=== PATIENT | male | born 1965 | race Caucasian/White ===

== ENCOUNTER 2017-04-28 20:20 | Emergency (ER) | payer BC ==
[2017-04-28] MEDS ORDERED: ONDANSETRON HCL/PF 2 MG/ML VIAL IV ONE (20:55)
[2017-04-28] MEDS ORDERED: NORMAL SALINE 1,000 ML IV ONE (20:55)
[2017-04-28] MEDS ORDERED: ONDANSETRON HCL/PF 2 MG/ML VIAL ONE (21:03)
--- NOTE | 2017-04-28 21:06 | ERNOTE ---
Medical Problem HPI - General Chief Complaint: Nausea/Vomiting Time Seen by Provider: 04/28/17 20:46 Source: patient Exam Limitations: no limitations - Immun/Allergies/Home Medications Immunizations: IMMUNIZATION HX Immunizations Up to Date Yes History of Influenza Vaccine Yes Hx Pneumococcal Vaccination Yes Allergies/Adverse Reactions: Allergies No Known Allergies Allergy (Verified 07/14/16 05:32) Home Medications: HOME MEDICATIONS Acetaminophen [Tylenol] 650 mg PO Q6H PRN #0 tablet 07/14/16 [Last Taken Unknown ] Albuterol Sulfate/Ipratropium [Duoneb 2.5-0.5MG/3ML Soln] 3 ml IH Q4H PRN #0 nebu 07/14/16 [Last Taken Unknown] Heparin Sodium,Porcine [Heparin Sodium] 5,000 units SC Q8H vial 07/14/16 [Last Taken Unknown] Levofloxacin/D5w [Levaquin] 750 mg IV Q24H bag 07/14/16 [Last Taken Unknown] Morphine Sulfate 2 mg IV Q1H PRN #0 disp.syrin 07/14/16 [Last Taken Unknown] Morphine Sulfate 4 mg IV Q2H PRN #0 disp.syrin 07/14/16 [Last Taken Unknown] - History of Present History Narrative: pt awoke this AM with pressure feeling in his head and nausea and vomiting. He has been unable to keep anything down today. Pt finished chemo for lung cancer in February and has not yet had a follow up scan. Timing: constant, getting worse Severity: moderate, severe Review of Systems - Narrative Narrative: difficult to obtain information from the patient as he is very impatient and does not answer questions fully - Review of Systems Constitutional: Absent: recent illness EYE: Present: no symptoms reported ENT: Present: no symptoms reported Respiratory: Present: shortness of breath - no more than usual Cardiology: Present: no symptoms reported Gastrointestinal/Abdominal: Present: nausea, vomiting Genitourinary: Present: no symptoms reported Musculoskeletal: Present: no symptoms reported Skin: Present: no symptoms reported Neurological: Present: no symptoms reported Endocrine: Present: no symptoms reported Hematologic/Lymphatic: Present: no symptoms reported Psych: Present: no symptoms reported - Patient's Past Medical History Patient History - Medical: Kidney stone Patient History - Cardiac/Respiratory: No pertinent hx Patient History - Cancer: Lung, Chemotherapy history Patient History - Surgical Procedures: Cancer Surgery, T & A Patient History - Other: None - Family History Mother Family History - Medical: No pertinent hx Father Family History - Medical: - Social History Living Situations: home Abuse History: No History of abuse Psych History: No pertinent hx Smoking Status: Former smoker Patient requests Smoking Cessation Consult: No Initiate information on Smoking Cessation: No Alcohol Use: none Drug Use: none - Immunizations Immunizations Up to Date: Yes Hx Pneumococcal Vaccination: Yes History of Influenza Vaccine: Yes Physical Exam - Physical Exam General Appearance: Present: wd/wn, alert, mild distress, irritable Head Exam: Present: normal inspection, no evidence of injury Respiratory: Present: no respiratory distress, normal breath sounds - on the right, no accessory muscle use, decreased breath sounds - absent on the left Cardiovascular/Chest: Present: regular rate, rhythm Gastrointestinal/Abdominal: Present: normal bowel sounds, nondistended, soft, tenderness - diffuse. Absent: guarding, rebound Back Exam: Present: normal inspection, normal range of motion Extremity Exam: Present: normal inspection, normal range of motion Neurological Exam: Present: alert, oriented Skin Exam: Present: normal color, warm/dry ED Progress - Vital Signs Vital Signs: Vital Signs 04/28/17 04/28/17 20:22 20:46 Temperature 36.5 C 36.8 C Pulse Rate 77 99 Respiratory 16 Rate Blood Pressure 155/98 166/100 O2 Sat by Pulse 99 99 Oximetry - Progress/Reassessment Chief Complaint: Nausea/Vomiting Departure - Departure Clinical Impression: Vomiting Qualifiers: Vomiting type: unspecified Vomiting Intractability: non-intractable Nausea presence: with nausea Qualified Code(s): R11.2 - Nausea with vomiting, unspecified Disposition: Home Follow Up Needed Condition: Good Instructions: Nausea, Adult Additional Instructions: take the ondansetron that you have at home per directions. take it scheduled for the next 24 hours then as needed
--- OUTSIDE RECORDS SUMMARY | 2017-04-28 21:06 | XMS REPORT | Summary of Care ---
:1965 Author Organization [facility] Care Team Providers Name Role Phone Angel Hernandes Primary Care Physician Encounter Date(s): 01/08/17 - 01/08/[address] 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 Start Date: 01/01/17 Status: Ordereddexamethasone 4 mg oral tablet 1 tab(s), Oral, BID, Take for 3 days, start day before chemotherapy, # 6 tab(s) , 0 Refill(s), Start Date: 01/01/17 9:10:00 CDT, other reason (Rx) Special Instructions: Take for 3 days, start day before chemotherapy Start Date: 01/01/17 Status: OrderedFlomax 0.4 mg oral capsule 1 cap(s), Oral, HS, # 30 cap(s), 11 Refill(s), Start Date: 09/14/15 10:57:00 VOCATIONAL EVALUATOR , Pharmacy: [place], [place] Start Date: 09/14/15 Stop Date: 11/27/16 Status: Discontinuedfolic acid 1 mg oral tablet 1 tab(s), Oral, Daily, # 30 tab(s), 5 Refill(s), Start Date: 12/25/16 12:57:00 CDT, Pharmacy: [place], [place] Start Date: 12/25/16 Status: Orderedfolic acid 1 mg oral tablet 1 tab(s), Oral, Daily, # 30 tab(s), 0 Refill(s), Start Date: 01/01/17 9:10:00 CDT, other reason (Rx) Start Date: 01/01/17 Status: Orderedlisinopril 10 mg oral tablet 1 tab(s), Oral, Daily, 0 Refill(s), Start Date: 08/31/15 11:05:00 VOCATIONAL EVALUATOR Start Date: 08/31/15 Status: OrderedNorco 5 mg-325 mg oral tablet 1 tab(s), Oral, q6hr, # 12 tab(s), 0 Refill(s), Start Date: 12/01/16 12:58:00 VOCATIONAL EVALUATOR, Pharmacy: [place], [place] Start Date: 12/01/16 Status: Orderedondansetron 8 mg oral tablet 1 tab(s), Oral, q8hr, PRN nausea/vomiting, # 40 tab(s), 3 Refill(s), Start Date : 12/03/16 13:43:00 VOCATIONAL EVALUATOR, Pharmacy: [place] Start Date: 12/03/16 Status: Orderedprochlorperazine 10 mg oral tablet 1 tab(s), Oral, q6hr, PRN nausea/vomiting, # 40 tab(s), 3 Refill(s), Start Date : 12/03/16 13:42:00 VOCATIONAL EVALUATOR, Pharmacy: [place] Start Date: 12/03/16 Status: OrderedXanax 0.25 mg oral tablet 1 tab(s), Oral, TID, prn anxiety, 0 Refill(s), Start Date: 11/28/16 9:04:00 VOCATIONAL EVALUATOR Special Instructions: prn anxiety Start Date: 11/28/16 Status: OrderedXarelto 15 mg oral tablet 1 tab(s), Oral, BID, # 42 tab(s), 0 Refill(s), Start Date: 12/25/16 13:02:00 CDT , called to pharmacy (Rx) Start Date: 12/25/16 Stop Date: 01/15/17 Status: OrderedXarelto 20 mg oral tablet 1 tab(s), Oral, qPM, # 30 tab(s), 3 Refill(s), Start Date: 01/15/17 13:04:00 CDT , called to pharmacy (Rx) Start Date: 01/15/17 Status: Ordered Results Patient Viewable Results Most recent to oldest [Reference Range]: 1 WBC [4.8-10.8 thou/mm3] 7.4 thou/mm3 (01/08/17 8:10 AM) RBC [4.60-6.00 Mil/mm3] 4.98 Mil/mm3 (01/08/17 8:10 AM) Hgb [14.0-18.0 g/dL] 13.3 g/dL *LOW* (01/08/17 8:10 AM) Hct [42.0-52.0 %] 39.4 % *LOW* (01/08/17 8:10 AM) MCV [80.0-94.0 fL] 79.1 fL *LOW* (01/08/17 8:10 AM) MCH [25.0-38.0 pg/cell] 26.7 pg/cell (01/08/17 8:10 AM) MCHC [31.0-37.0 g/dL] 33.8 g/dL (01/08/17 8:10 AM) RDW [1.0-48.0 fL] 37.5 fL (01/08/17 8:10 AM) Platelet [130-400 thou/mm3] 140 thou/mm3 (01/08/17 8:10 AM) Neutrophils % Auto [50.0-75.0 %] 68.7 % (01/08/17 8:10 AM) Immature Granulocyte Auto [0.1-2.0 %] 0.4 % (01/08/17 8:10 AM) Lymphocytes % Auto [15.0-41.0 %] 24.8 % (01/08/17 8:10 AM) Monocytes % Auto [2.0-10.0 %] 5.1 % (01/08/17 8:10 AM) Eosinophils % Auto [0.0-6.0 %] 0.9 % (01/08/17 8:10 AM) Basophil % Auto [0.0-1.0 %] 0.1 % (01/08/17 8:10 AM) Neutrophils Absolute [1.5-5.9 thou/mm3] 5.1 thou/mm3 (01/08/17 8:10 AM) Immature Gran Absolute [0.01-0.03 thou/mm3] 0.03 thou/mm3 (01/08/17 8:10 AM) Lymphocytes Absolute [1.5-4.0 thou/mm3] 1.8 thou/mm3 (01/08/17 8:10 AM) Monocytes Absolute [0.0-0.9 thou/mm3] 0.4 thou/mm3 (01/08/17 8:10 AM) Eosinophil Absolute [0.0-0.7 thou/mm3] 0.1 thou/mm3 (01/08/17 8:10 AM) Basophil Absolute [0.0-0.2 thou/mm3] 0.0 thou/mm3 (01/08/17 8:10 AM) Immunizations No data available for this section Procedures Procedure Date Related Diagnosis Body Site Insertion Implanted Port1 12/01/16 Lobectomy of lung2 Tonsillectomy and adenoidectomy 1auto-populated from documented surgical [id number] Social History No data available for this section Assessment and Plan No data available for this section
--- OUTSIDE RECORDS SUMMARY | 2017-04-28 21:06 | XMS REPORT | Summary of Care ---
:1965 Author Organization [facility] Address [address] [place] [address] Care Team Providers Name Role Phone Angel Hernandes Primary Care Physician Encounter Date(s): 01/01/17 - 01/01/17 [facility], [address] [place], [place] [address] Discharge Diagnosis: Adenocarcinoma of upper lobe of left lung Discharge Disposition: 01 Discharged to Home or Self Care Attending Physician: America Blanchard MD Referring Physician: America Blanchard MD Vital Signs Most recent to oldest [Reference Range]: 1 Temperature Temporal Artery [36.0-38.0 DegC] 36.4 DegC (01/01/17 8:35 AM) Peripheral Pulse Rate [60-100 bpm] 98 bpm (01/01/17 8:35 AM) Respiratory Rate [12-20 br/min] 20 br/min (01/01/17 8:35 AM) SpO2 [90-100 %] 98 % (01/01/17 8:35 AM) Blood Pressure [90-130/60-90 mmHg] 142/73mmHg *HI* (01/01/17 8:35 AM) Mean Arterial Pressure, Cuff 96 mmHg (01/01/17 8:35 AM) Most recent to oldest [Reference Range]: 1 Height/Length Measured 178 cm (01/01/17 8:35 AM) Height/Length Estimated 178 cm (01/01/17 8:35 AM) Weight Estimated 77 kg (01/01/17 8:35 AM) Weight Dosing 77 kg (01/01/17 8:35 AM) Weight Measured 77 kg (01/01/17 8:35 AM) BSA Measured 1.95 m2 (01/01/17 8:35 AM) BSA Estimated 1.95 m2 (01/01/17 8:35 AM) Body Mass Index Measured 24.3 kg/m2 (01/01/17 8:35 AM) Body Mass Index Estimated 24.3 kg/m2 (01/01/17 8:35 AM) Problem List Condition Effective Dates Status Health [...] Refill(s), Start Date: 01/01/17 9:08:00 CDT, Pharmacy: [place], [place] Special Instructions: Please take day before [...] cap(s), 11 Refill(s), Start Date: 09/14/15 10:57:00 RESTAURANT TEAM MEMBER , Pharmacy: [place] Start Date: 09/14/15 Stop Date: 11/27/16 Status: Discontinuedfolic acid 1 mg oral tablet 1 tab(s), Oral, Daily, # 30 tab(s), 5 Refill(s), Start Date: 12/25/16 12:57:00 CDT, Pharmacy: [place] Start Date: 12/25/16 Status: Orderedfolic acid 1 mg oral tablet 1 tab(s), Oral, Daily, # 30 tab(s), 0 Refill(s), Start Date: 01/01/17 9:10:00 CDT, other reason (Rx) Start Date: 01/01/17 Status: Orderedlisinopril 10 mg oral tablet 1 tab(s), Oral, Daily, 0 Refill(s), Start Date: 08/31/15 11:05:00 RESTAURANT TEAM MEMBER Start Date: 08/31/15 Status: OrderedNorco 5 mg-325 mg oral tablet 1 tab(s), Oral, q6hr, # 12 tab(s), 0 Refill(s), Start Date: 12/01/16 12:58:00 RESTAURANT TEAM MEMBER, Pharmacy: [place], [place] Start Date: 12/01/16 Status: Orderedondansetron 8 mg oral tablet 1 tab(s), Oral, q8hr, PRN nausea/vomiting, # 40 tab(s), 3 Refill(s), Start Date : 12/03/16 13:43:00 RESTAURANT TEAM MEMBER, Pharmacy: [place], [place] Start Date: 12/03/16 Status: Orderedprochlorperazine 10 mg oral tablet 1 tab(s), Oral, q6hr, PRN nausea/vomiting, # 40 tab(s), 3 Refill(s), Start Date : 12/03/16 13:42:00 RESTAURANT TEAM MEMBER, Pharmacy: [place], [place] Start Date: 12/03/16 Status: OrderedXanax 0.25 mg oral tablet 1 tab(s), Oral, TID, prn anxiety, 0 Refill(s), Start Date: 11/28/16 9:04:00 RESTAURANT TEAM MEMBER Special Instructions: prn anxiety Start Date: 11/28/16 [...] Most recent to oldest [Reference Range]: 1 Estimated Creatinine Clearance 133.50 mL/min (01/01/17 8:36 AM) Immunizations No data available for this section Procedures Procedure Date Related Diagnosis Body Site Insertion Implanted Port1 12/01/16 Lobectomy of lung2 Tonsillectomy and adenoidectomy 1auto-populated from documented surgical [id number] Social History No data available for this section Assessment and Plan No data available for this section
--- OUTSIDE RECORDS SUMMARY | 2017-04-28 21:06 | XMS REPORT | Summary of Care ---
:1965 Author Organization [facility] Address [address] [place] [phone] Care Team Providers Name Role Phone Cecilio Angel Primary Care Physician Encounter Date(s): 12/04/16 - 12/04/[address] [address]- [facility] Discharge Disposition: 01 Discharged to Home or Self Care Attending Physician: America Blanchard MD Admitting Physician: America Blanchard MD Vital Signs Most recent to oldest [Reference Range]: 1 2 Temperature Temporal Artery [36-38 DegC] 36.7 DegC 36.5 DegC (12/04/16 3:08 PM) (12/04/16 8:17 AM) Peripheral Pulse Rate [60-100 bpm] 82 bpm 90 bpm (12/04/16 3:08 PM) (12/04/16 8:17 AM) Respiratory Rate [12-20 br/min] 18 br/min 18 br/min (12/04/16 3:08 PM) (12/04/16 8:17 AM) SpO2 [90-100 %] 98 % 98 % (12/04/16 3:08 PM) (12/04/16 8:17 AM) SpO2 Location Left hand Left hand (12/04/16 3:08 PM) (12/04/16 8:17 AM) Blood Pressure [90-130/60-90 mmHg] 160/88mmHg 138/83mmHg *HI* *HI* (12/04/16 3:08 PM) (12/04/16 8:17 AM) Mean Arterial Pressure, Cuff 112 mmHg 101 mmHg (12/04/16 3:08 PM) (12/04/16 8:17 AM) Most recent to oldest [Reference Range]: 1 2 Height/Length Measured 178 cm (12/03/16 4:39 PM) Height/Length Estimated 178 cm (12/03/16 4:39 PM) Problem List Condition Effective Dates Status Health Status Informant Hypertension(Confirmed) Active 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) Allergies, Adverse Reactions, Alerts Substance Reaction Severity Status fentaNYL Erythema Severe Active Medications Flomax 0.4 mg oral capsule 1 cap(s), Oral, HS, # 30 cap(s), 11 Refill(s), Start Date: 09/14/15 10:57:00 RESEARCH AND DEVELOPMENT TECHNICIAN , Pharmacy: [place], [place] Start Date: 09/14/15 Stop Date: 11/27/16 Status: Discontinuedlisinopril 10 mg oral tablet 1 tab(s), Oral, Daily, 0 Refill(s), Start Date: 08/31/15 11:05:00 RESEARCH AND DEVELOPMENT TECHNICIAN Start Date: 08/31/15 Status: OrderedNorco 5 mg-325 mg oral tablet 1 tab(s), Oral, q6hr, # 12 tab(s), 0 Refill(s), Start Date: 12/01/16 12:58:00 RESEARCH AND DEVELOPMENT TECHNICIAN, Pharmacy: [facility], [place] Start Date: 12/01/16 Status: Orderedondansetron 8 mg oral tablet 1 tab(s), Oral, q8hr, PRN nausea/vomiting, # 40 tab(s), 3 Refill(s), Start Date : 12/03/16 13:43:00 RESEARCH AND DEVELOPMENT TECHNICIAN, Pharmacy: [facility], [place] Start Date: 12/03/16 Status: Orderedprochlorperazine 10 mg oral tablet 1 tab(s), Oral, q6hr, PRN nausea/vomiting, # 40 tab(s), 3 Refill(s), Start Date : 12/03/16 13:42:00 RESEARCH AND DEVELOPMENT TECHNICIAN, Pharmacy: [facility], [place] Start Date: 12/03/16 Status: OrderedXanax 0.25 mg oral tablet 1 tab(s), Oral, TID, prn anxiety, 0 Refill(s), Start Date: 11/28/16 9:04:00 RESEARCH AND DEVELOPMENT TECHNICIAN Special Instructions: prn anxiety Start Date: 11/28/16 Status: Ordered Results Patient Viewable Results Most recent to oldest [Reference Range]: 1 Estimated Creatinine Clearance 154.21 mL/min (12/03/16 4:39 PM) Immunizations No data available for this section Procedures Procedure Date Related Diagnosis Body Site Insertion Implanted Port1 12/01/16 Lobectomy of lung2 Tonsillectomy and adenoidectomy 1auto-populated from documented surgical [id number] Social History No data available for this section Assessment and Plan No data available for this section
--- OUTSIDE RECORDS SUMMARY | 2017-04-28 21:07 | XMS REPORT | Summary of Care ---
:1965 Author Organization [facility] Address [address] [place] [phone]- Care Team Providers Name Role Phone Angel Hernandes Primary Care Physician Encounter Date(s): 12/25/16 - 12/25/[address] [address] Discharge Disposition: 01 Discharged to Home [...] cap(s), 11 Refill(s), Start Date: 09/14/15 10:57:00 DIE TURNER , Pharmacy: [place], [place] Start Date: 09/14/15 Stop Date: 11/27/16 Status: Discontinuedfolic acid 1 mg oral tablet 1 tab(s), Oral, Daily, # 30 tab(s), 5 Refill(s), Start Date: 12/25/16 12:57:00 CDT, Pharmacy: [place], [place] Start Date: 12/25/16 Status: Orderedlisinopril 10 mg oral tablet 1 tab(s), Oral, Daily, 0 Refill(s), Start Date: 08/31/15 11:05:00 DIE TURNER Start Date: 08/31/15 Status: OrderedNorco 5 mg-325 mg oral tablet 1 tab(s), Oral, q6hr, # 12 tab(s), 0 Refill(s), Start Date: 12/01/16 12:58:00 DIE TURNER, Pharmacy: [place], [place] Start Date: 12/01/16 Status: Orderedondansetron 8 mg oral tablet 1 tab(s), Oral, q8hr, PRN nausea/vomiting, # 40 tab(s), 3 Refill(s), Start Date : 12/03/16 13:43:00 DIE TURNER, Pharmacy: [place], [place] Start Date: 12/03/16 Status: Orderedprochlorperazine 10 mg oral tablet 1 tab(s), Oral, q6hr, PRN nausea/vomiting, # 40 tab(s), 3 Refill(s), Start Date : 12/03/16 13:42:00 DIE TURNER, Pharmacy: [place], [place] Start Date: 12/03/16 Status: OrderedXanax 0.25 mg oral tablet 1 tab(s), Oral, TID, prn anxiety, 0 Refill(s), Start Date: 11/28/16 9:04:00 DIE TURNER Special Instructions: prn anxiety Start Date: 11/28/16 [...] (Rx) Start Date: 01/15/17 Status: Ordered Results No data available for this section Immunizations No data available for this section Procedures Procedure Date Related Diagnosis Body Site Insertion Implanted Port1 12/01/16 Lobectomy of lung2 Tonsillectomy and adenoidectomy 1auto-populated from documented surgical [id number] Social History No data available for this section Assessment and Plan No data available for this section
--- OUTSIDE RECORDS SUMMARY | 2017-04-28 21:07 | XMS REPORT | Summary of Care ---
:1965 Author Organization [facility] Address [address] [place] [phone] Care Team Providers Name Role Phone Angel Hernandes Primary Care Physician Encounter Date(s): 12/11/16 - 12/11/[address] [address]- [facility] Discharge Disposition: 01 Discharged to Home or Self Care Attending Physician: America Blanchard MD Admitting Physician: America Blanchard MD Vital Signs Most recent to oldest [Reference Range]: 1 Peripheral Pulse Rate [60-100 bpm] 86 bpm (12/11/16 4:00 PM) Blood Pressure [90-130/60-90 mmHg] 134/79mmHg *HI* (12/11/16 4:00 PM) Problem List Condition Effective Dates Status Health Status Informant Hypertension(Confirmed) Active 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) Allergies, Adverse Reactions, Alerts Substance Reaction Severity Status fentaNYL Erythema Severe Active Medications Flomax 0.4 mg oral capsule 1 cap(s), Oral, HS, # 30 cap(s), 11 Refill(s), Start Date: 09/14/15 10:57:00 CHEMICAL ENGINEERING PROFESSOR , Pharmacy: [facility] [place] Start Date: 09/14/15 Stop Date: 11/27/16 Status: Discontinuedlisinopril 10 mg oral tablet 1 tab(s), Oral, Daily, 0 Refill(s), Start Date: 08/31/15 11:05:00 CHEMICAL ENGINEERING PROFESSOR Start Date: 08/31/15 Status: OrderedNorco 5 mg-325 mg oral tablet 1 tab(s), Oral, q6hr, # 12 tab(s), 0 Refill(s), Start Date: 12/01/16 12:58:00 CHEMICAL ENGINEERING PROFESSOR, Pharmacy: [place], [place] Start Date: 12/01/16 Status: Orderedondansetron 8 mg oral tablet 1 tab(s), Oral, q8hr, PRN nausea/vomiting, # 40 tab(s), 3 Refill(s), Start Date : 12/03/16 13:43:00 CHEMICAL ENGINEERING PROFESSOR, Pharmacy: [place], [place] Start Date: 12/03/16 Status: Orderedprochlorperazine 10 mg oral tablet 1 tab(s), Oral, q6hr, PRN nausea/vomiting, # 40 tab(s), 3 Refill(s), Start Date : 12/03/16 13:42:00 CHEMICAL ENGINEERING PROFESSOR, Pharmacy: [place], [place] Start Date: 12/03/16 Status: OrderedXanax 0.25 mg oral tablet 1 tab(s), Oral, TID, prn anxiety, 0 Refill(s), Start Date: 11/28/16 9:04:00 CHEMICAL ENGINEERING PROFESSOR Special Instructions: prn anxiety Start Date: 11/28/16 Status: Ordered Results Patient Viewable Results Most recent to oldest [Reference Range]: 1 WBC [4.8-10.8 thou/mm3] 9.8 thou/mm3 (12/11/16 8:06 AM) RBC [4.60-6.00 Mil/mm3] 5.02 Mil/mm3 (12/11/16 8:06 AM) Hgb [14.0-18.0 g/dL] 13.7 g/dL *LOW* (12/11/16 8:06 AM) Hct [42.0-52.0 %] 40.5 % *LOW* (12/11/16 8:06 AM) MCV [80.0-94.0 fL] 80.7 fL (12/11/16 8:06 AM) MCH [25.0-38.0 pg/cell] 27.3 pg/cell (12/11/16 8:06 AM) MCHC [31.0-37.0 g/dL] 33.8 g/dL (12/11/16 8:06 AM) RDW [1.0-48.0 fL] 36.0 fL (12/11/16 8:06 AM) Platelet [130-400 thou/mm3] 197 thou/mm3 (12/11/16 8:06 AM) Neutrophils % Auto [50.0-75.0 %] 68.4 % (12/11/16 8:06 AM) Immature Granulocyte Auto [0.1-2.0 %] 0.7 % (12/11/16 8:06 AM) Lymphocytes % Auto [15.0-41.0 %] 23.5 % (12/11/16 8:06 AM) Monocytes % Auto [2.0-10.0 %] 4.7 % (12/11/16 8:06 AM) Eosinophils % Auto [0.0-6.0 %] 2.5 % (12/11/16 8:06 AM) Basophil % Auto [0.0-1.0 %] 0.2 % (12/11/16 8:06 AM) Neutrophils Absolute [1.5-5.9 thou/mm3] 6.7 thou/mm3 *HI* (12/11/16 8:06 AM) Immature Gran Absolute [0.01-0.03 thou/mm3] 0.07 thou/mm3 *HI* (12/11/16 8:06 AM) Lymphocytes Absolute [1.5-4.0 thou/mm3] 2.3 thou/mm3 (12/11/16 8:06 AM) Monocytes Absolute [0.0-0.9 thou/mm3] 0.5 thou/mm3 (12/11/16 8:06 AM) Eosinophil Absolute [0.0-0.7 thou/mm3] 0.2 thou/mm3 (12/11/16 8:06 AM) Basophil Absolute [0.0-0.2 thou/mm3] 0.0 thou/mm3 (12/11/16 8:06 AM) Sodium Lvl [135-144 mEq/L] 138 mEq/L (12/11/16 8:06 AM) Potassium Lvl [3.3-4.8 mEq/L] 4.3 mEq/L (12/11/16 8:06 AM) Chloride Lvl [98-107 mEq/L] 98 mEq/L (12/11/16 8:06 AM) Bicarbonate Lvl [22-30 mmol/L] 29 mmol/L (12/11/16 8:06 AM) Anion Gap [10.0-20.0] 15.3 (12/11/16 8:06 AM) Glucose Lvl [70-108 mg/dL] 112 mg/dL *HI* (12/11/16 8:06 AM) BUN [7-21 mg/dL] 18 mg/dL (12/11/16 8:06 AM) Creatinine Lvl [0.50-1.20 mg/dL] 0.67 mg/dL (12/11/16 8:06 AM) BUN/Creat Ratio 26.9 *NA* (12/11/16 8:06 AM) eGFR AA [>=60] >60 (12/11/16 8:06 AM) eGFR LUANN [>=60] >60 (12/11/16 8:06 AM) Calcium Lvl [8.6-10.2 mg/dL] 9.4 mg/dL (12/11/16 8:06 AM) Total Protein [6.4-8.3 g/dL] 7.4 g/dL (12/11/16 8:06 AM) Albumin Lvl [3.5-5.2 g/dL] 3.9 g/dL (12/11/16 8:06 AM) Globulin 3.5 *NA* (12/11/16 8:06 AM) A/G Ratio [0.9-1.8] 1.1 (12/11/16 8:06 AM) Bilirubin Total [0.1-1.0 mg/dL] 0.4 mg/dL (12/11/16 8:06 AM) Alkaline Phosphatase [39-129 unit/L] 114 unit/L (12/11/16 8:06 AM) AST [0-39 unit/L] 29 unit/L (12/11/16 8:06 AM) ALT [0-40 unit/L] 40 unit/L (12/11/16 8:06 AM) Magnesium Lvl [1.6-2.4 mg/dL] 1.8 mg/dL (12/11/16 8:06 AM) Estimated Creatinine Clearance 133.50 mL/min (12/11/16 8:28 AM) Immunizations No data available for this section Procedures Procedure Date Related Diagnosis Body Site Insertion Implanted Port1 2/20/17 Lobectomy of lung2 Tonsillectomy and adenoidectomy 1auto-populated from documented surgical [id number] Social History No data available for this section Assessment and Plan No data available for this section
--- OUTSIDE RECORDS SUMMARY | 2017-04-28 21:07 | XMS REPORT | Summary of Care ---
:1965 Author Organization [facility] Address [address] [place] [id number] Care Team Providers Name Role Phone Angel Hernandes Primary Care Physician Encounter Date(s): 12/18/16 - 12/18/[address] [address]- [facility] Discharge Disposition: 01 Discharged to Home or Self Care Attending Physician: America Blanchard MD Admitting Physician: America Blanchard MD Vital Signs Most recent to oldest [Reference Range]: 1 2 Temperature Temporal Artery [36-38 DegC] 36.7 DegC 37.0 DegC (12/18/16 9:23 AM) (12/18/16 8:43 AM) Peripheral Pulse Rate [60-100 bpm] 82 bpm 97 bpm (12/18/16 9:23 AM) (12/18/16 8:43 AM) Respiratory Rate [12-20 br/min] 17 br/min 17 br/min (12/18/16 9:23 AM) (12/18/16 8:43 AM) SpO2 [90-100 %] 98 % 100 % (12/18/16 9:23 AM) (12/18/16 8:43 AM) Blood Pressure [90-130/60-90 mmHg] 154/98mmHg 140/68mmHg *HI* *HI* (12/18/16 9:23 AM) (12/18/16 8:43 AM) Mean Arterial Pressure, Cuff 117 mmHg 92 mmHg (12/18/16 9:23 AM) (12/18/16 8:43 AM) Problem List Condition Effective Dates Status Health Status Informant Hypertension(Confirmed) Active 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) Allergies, Adverse Reactions, Alerts Substance Reaction Severity Status fentaNYL Erythema Severe Active Medications Flomax 0.4 mg oral capsule 1 cap(s), Oral, HS, # 30 cap(s), 11 Refill(s), Start Date: 09/14/15 10:57:00 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 , 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[place], [place] Start Date: 09/14/15 Stop Date: 11/27/16 Status: Discontinuedlisinopril 10 mg oral tablet 1 tab(s), Oral, Daily, 0 Refill(s), Start Date: 08/31/15 11:05:00 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 Start Date: 08/31/15 Status: OrderedNorco 5 mg-325 mg oral tablet 1 tab(s), Oral, q6hr, # 12 tab(s), 0 Refill(s), Start Date: 12/01/16 12:58:00 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, Pharmacy: [place] Start Date: 12/01/16 Status: Orderedondansetron 8 mg oral tablet 1 tab(s), Oral, q8hr, PRN nausea/vomiting, # 40 tab(s), 3 Refill(s), Start Date : 12/03/16 13:43:00 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, Pharmacy: [place] Start Date: 12/03/16 Status: Orderedprochlorperazine 10 mg oral tablet 1 tab(s), Oral, q6hr, PRN nausea/vomiting, # 40 tab(s), 3 Refill(s), Start Date : 12/03/16 13:42:00 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, Pharmacy: [place] Start Date: 12/03/16 Status: OrderedXanax 0.25 mg oral tablet 1 tab(s), Oral, TID, prn anxiety, 0 Refill(s), Start Date: 11/28/16 9:04:00 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 Special Instructions: prn anxiety Start Date: 11/28/16 Status: Ordered Results Patient Viewable Results Most recent to oldest [Reference Range]: 1 WBC [4.8-10.8 thou/mm3] 4.1 thou/mm3 *LOW* (12/18/16 8:15 AM) RBC [4.60-6.00 Mil/mm3] 4.64 Mil/mm3 (12/18/16 8:15 AM) Hgb [14.0-18.0 g/dL] 12.4 g/dL *LOW* (12/18/16 8:15 AM) Hct [42.0-52.0 %] 37.4 % *LOW* (12/18/16 8:15 AM) MCV [80.0-94.0 fL] 80.6 fL (12/18/16 8:15 AM) MCH [25.0-38.0 pg/cell] 26.7 pg/cell (12/18/16 8:15 AM) MCHC [31.0-37.0 g/dL] 33.2 g/dL (12/18/16 8:15 AM) RDW [1.0-48.0 fL] 35.9 fL (12/18/16 8:15 AM) Platelet [130-400 thou/mm3] 152 thou/mm3 (12/18/16 8:15 AM) Neutrophils % Auto [50.0-75.0 %] 49.0 % *LOW* (12/18/16 8:15 AM) Immature Granulocyte Auto [0.1-2.0 %] 0.5 % (12/18/16 8:15 AM) Lymphocytes % Auto [15.0-41.0 %] 42.3 % *HI* (12/18/16 8:15 AM) Monocytes % Auto [2.0-10.0 %] 6.1 % (12/18/16 8:15 AM) Eosinophils % Auto [0.0-6.0 %] 1.9 % (12/18/16 8:15 AM) Basophil % Auto [0.0-1.0 %] 0.2 % (12/18/16 8:15 AM) Neutrophils Absolute [1.5-5.9 thou/mm3] 2.0 thou/mm3 (12/18/16 8:15 AM) Immature Gran Absolute [0.01-0.03 thou/mm3] 0.02 thou/mm3 (12/18/16 8:15 AM) Lymphocytes Absolute [1.5-4.0 thou/mm3] 1.7 thou/mm3 (12/18/16 8:15 AM) Monocytes Absolute [0.0-0.9 thou/mm3] 0.2 thou/mm3 (12/18/16 8:15 AM) Eosinophil Absolute [0.0-0.7 thou/mm3] 0.1 thou/mm3 (12/18/16 8:15 AM) Basophil Absolute [0.0-0.2 thou/mm3] 0.0 thou/mm3 (12/18/16 8:15 AM) Immunizations No data available for this section Procedures Procedure Date Related Diagnosis Body Site Insertion Implanted Port1 12/01/16 Lobectomy of lung2 Tonsillectomy and adenoidectomy 1auto-populated from documented surgical [id number] Social History No data available for this section Assessment and Plan No data available for this section
--- OUTSIDE RECORDS SUMMARY | 2017-04-28 21:07 | XMS REPORT | Summary of Care ---
:1965 Author Organization [facility] Address [address] [place] [address] Care Team Providers Name Role Phone Angel Hernandes Primary Care Physician Encounter Date(s): 12/11/16 - 12/11/16 [facility], [address] [place], [place] [address] Discharge Disposition: 01 Discharged to Home or Self Care Attending Physician: America Blanchard MD Referring Physician: Angel Hernandes MD Vital Signs Most recent to oldest [Reference Range]: 1 Temperature Temporal Artery [36.0-38.0 DegC] 36.6 DegC (12/11/16 8:34 AM) Peripheral Pulse Rate [60-100 bpm] 105 bpm *HI* (12/11/16 8:34 AM) Respiratory Rate [12-20 br/min] 20 br/min (12/11/16 8:34 AM) SpO2 [90-100 %] 98 % (12/11/16 8:34 AM) Blood Pressure [90-130/60-90 mmHg] 113/75mmHg (12/11/16 8:34 AM) Mean Arterial Pressure, Cuff 88 mmHg (12/11/16 8:34 AM) Most recent to oldest [Reference Range]: 1 Height/Length Measured 178 cm (12/11/16 8:34 AM) Height/Length Estimated 178 cm (12/11/16 8:34 AM) Weight Estimated 74.4 kg (12/11/16 8:34 AM) Weight Dosing 74.4 kg (12/11/16 8:34 AM) Weight Measured 74.4 kg (12/11/16 8:34 AM) BSA Measured 1.92 m2 (12/11/16 8:34 AM) BSA Estimated 1.92 m2 (12/11/16 8:34 AM) Body Mass Index Measured 23.48 kg/m2 (12/11/16 8:34 AM) Body Mass Index Estimated 23.48 kg/m2 (12/11/16 8:34 AM) Problem List Condition Effective Dates Status Health Status Informant Hypertension(Confirmed) Active 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) Allergies, Adverse Reactions, Alerts Substance Reaction Severity Status fentaNYL Erythema Severe Active Medications Flomax 0.4 mg oral capsule 1 cap(s), Oral, HS, # 30 cap(s), 11 Refill(s), Start Date: 09/14/15 10:57:00 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 , 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[place], [place] Start Date: 09/14/15 Stop Date: 11/27/16 Status: Discontinuedlisinopril 10 mg oral tablet 1 tab(s), Oral, Daily, 0 Refill(s), Start Date: 08/31/15 11:05:00 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 Start Date: 08/31/15 Status: OrderedNorco 5 mg-325 mg oral tablet 1 tab(s), Oral, q6hr, # 12 tab(s), 0 Refill(s), Start Date: 12/01/16 12:58:00 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, 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[place], [place] Start Date: 12/01/16 Status: Orderedondansetron 8 mg oral tablet 1 tab(s), Oral, q8hr, PRN nausea/vomiting, # 40 tab(s), 3 Refill(s), Start Date : 12/03/16 13:43:00 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, Pharmacy: [place], [place] Start Date: 12/03/16 Status: Orderedprochlorperazine 10 mg oral tablet 1 tab(s), Oral, q6hr, PRN nausea/vomiting, # 40 tab(s), 3 Refill(s), Start Date : 12/03/16 13:42:00 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, 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: [place] Start Date: 12/03/16 Status: OrderedXanax 0.25 mg oral tablet 1 tab(s), Oral, TID, prn anxiety, 0 Refill(s), Start Date: 11/28/16 9:04:00 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 Special Instructions: prn anxiety Start Date: 11/28/16 Status: Ordered Results Patient Viewable Results Most recent to oldest [Reference Range]: 1 Estimated Creatinine Clearance 133.50 mL/min (12/11/16 8:35 AM) Immunizations No data available for this section Procedures Procedure Date Related Diagnosis Body Site Insertion Implanted Port1 12/01/16 Lobectomy of lung2 Tonsillectomy and adenoidectomy 1auto-populated from documented surgical [id number] Social History No data available for this section Assessment and Plan No data available for this section
--- OUTSIDE RECORDS SUMMARY | 2017-04-28 21:07 | XMS REPORT | Summary of Care ---
:1965 Author Organization [facility] Care Team Providers Name Role Phone Angel Hernandes Primary Care Physician Encounter Date(s): 02/18/17 - 02/18/[address] [address] Discharge Disposition: Discharged to Home or [...] DAILY FOR 7 DAYS Start Date: 01/01/17 Stop Date: 01/21/17 Status: Discontinueddexamethasone 4 mg oral tablet 1 tab(s), Oral, BID, Take for 3 days, start day before chemotherapy, # 6 tab(s) , 0 Refill(s), Start Date: 02/18/17 8:14:00 CDT, other reason (Rx) Special Instructions: Take for 3 days, start day before chemotherapy Start Date: 02/18/17 Status: Ordereddexamethasone 4 mg oral tablet 2 tab(s), Oral, BID, Please take day before and day after chemotherapy., # 20 tab(s), 0 Refill(s), Start Date: 01/01/17 9:08:00 CDT, Pharmacy: [facility] [place] Special Instructions: Please take day before and day after chemotherapy. Start Date: 01/01/17 Stop Date: 02/18/17 Status: Discontinueddexamethasone 4 mg oral tablet 1 tab(s), Oral, BID, Take for 3 days, start day before chemotherapy, # 6 tab(s) , 0 Refill(s), Start Date: 01/28/17 8:19:00 CDT, other reason (Rx) Special Instructions: Take for 3 days, start day before chemotherapy Start Date: 01/28/17 Stop Date: 02/18/17 Status: Discontinueddexamethasone 4 mg oral tablet 1 tab(s), Oral, BID, Take for 3 days, start day before chemotherapy, # 6 tab(s) , 0 Refill(s), Start Date: 01/01/17 9:10:00 CDT, other reason (Rx) Special Instructions: Take for 3 days, start day before chemotherapy Start Date: 01/01/17 Status: OrderedFlomax 0.4 mg oral capsule 1 cap(s), Oral, HS, # 30 cap(s), 11 Refill(s), Start Date: 09/14/15 10:57:00 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 , 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[place], [place] Start Date: 09/14/15 Stop Date: 11/27/16 Status: Discontinuedfolic acid 1 mg oral tablet 1 tab(s), Oral, Daily, # 30 tab(s), 5 Refill(s), Start Date: 12/25/16 12:57:00 CDT, Pharmacy: [place], [place] Start Date: 12/25/16 Status: Orderedfolic acid 1 mg oral tablet 1 tab(s), Oral, Daily, # 30 tab(s), 0 Refill(s), Start Date: 02/18/17 8:14:00 CDT, other reason (Rx) Start Date: 02/18/17 Status: Orderedfolic acid 1 mg oral tablet 1 tab(s), Oral, Daily, # 30 tab(s), 0 Refill(s), Start Date: 01/28/17 8:19:00 CDT, other reason (Rx) Start Date: 01/28/17 Stop Date: 02/18/17 Status: Discontinuedfolic acid 1 mg oral tablet 1 tab(s), Oral, Daily, # 30 tab(s), 0 Refill(s), Start Date: 01/01/17 9:10:00 CDT, other reason (Rx) Start Date: 01/01/17 Stop Date: 02/18/17 Status: DiscontinuedHYDROcodone-acetaminophen 5 mg-325 mg oral tablet 2 tab(s), Oral, q4hr, X 1 days, # 24 tab(s), 0 Refill(s), Start Date: 01/20/17 23:45:00 CDT Start Date: 01/20/17 Stop Date: 01/21/17 Status: Completedlisinopril 10 mg oral tablet 1 tab(s), Oral, Daily, 0 Refill(s), Start Date: 08/31/15 11:05:00 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 Start Date: 08/31/15 Status: OrderedNorco 5 mg-325 mg oral tablet 1 tab(s), Oral, q6hr, # 12 tab(s), 0 Refill(s), Start Date: 12/01/16 12:58:00 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, Pharmacy: [place], [place] Start Date: 12/01/16 Stop Date: 02/18/17 Status: Discontinuedondansetron 8 mg oral tablet 1 tab(s), Oral, q8hr, PRN nausea/vomiting, # 40 tab(s), 3 Refill(s), Start Date : 12/03/16 13:43:00 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, Pharmacy: [place] Start Date: 12/03/16 Status: Orderedprochlorperazine 10 mg oral tablet 1 tab(s), Oral, q6hr, PRN nausea/vomiting, # 40 tab(s), 3 Refill(s), Start Date : 12/03/16 13:42:00 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, Pharmacy: [place] Start Date: 12/03/16 Status: OrderedXanax 0.25 mg oral tablet 1 tab(s), Oral, TID, prn anxiety, 0 Refill(s), Start Date: 11/28/16 9:04:00 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 Special Instructions: prn anxiety Start Date: 11/28/16 Stop Date: 01/21/17 Status: DiscontinuedXarelto 15 mg oral tablet 1 tab(s), Oral, BID, # 42 tab(s), 0 Refill(s), Start Date: 12/25/16 13:02:00 CDT , called to pharmacy (Rx) Start Date: 12/25/16 Stop Date: 01/21/17 Status: DiscontinuedXarelto 20 mg oral tablet 1 tab(s), Oral, qPM, # 30 tab(s), 3 Refill(s), Start Date: 01/15/17 13:04:00 CDT , called to pharmacy (Rx) Start Date: 01/15/17 Status: Ordered Results Patient Viewable Results Most recent to oldest [Reference Range]: 1 WBC [4.8-10.8 thou/mm3] 5.6 thou/mm3 (02/18/17 7:29 AM) RBC [4.60-6.00 Mil/mm3] 4.84 Mil/mm3 (02/18/17 7:29 AM) Hgb [14.0-18.0 g/dL] 13.6 g/dL *LOW* (02/18/17 7:29 AM) Hct [42.0-52.0 %] 40.5 % *LOW* (02/18/17 7:29 AM) MCV [80.0-94.0 fL] 83.7 fL (02/18/17 7:29 AM) MCH [25.0-38.0 pg/cell] 28.1 pg/cell (02/18/17 7:29 AM) MCHC [31.0-37.0 g/dL] 33.6 g/dL (02/18/17 7:29 AM) RDW [1.0-48.0 fL] 46.6 fL (02/18/17 7:29 AM) Platelet [130-400 thou/mm3] 276 thou/mm3 (02/18/17 7:29 AM) Neutrophils % Auto [50.0-75.0 %] 76.4 % *HI* (02/18/17 7:29 AM) Immature Granulocyte Auto [0.1-2.0 %] 0.9 % (02/18/17 7:29 AM) Lymphocytes % Auto [15.0-41.0 %] 15.5 % (02/18/17 7:29 AM) Monocytes % Auto [2.0-10.0 %] 7.2 % (02/18/17 7:29 AM) Eosinophils % Auto [0.0-6.0 %] 0.0 % (02/18/17 7:29 AM) Basophil % Auto [0.0-1.0 %] 0.0 % (02/18/1729 AM) Neutrophils Absolute [1.5-5.9 thou/mm3] 4.2 thou/mm3 (02/18/17:29 AM) Immature Gran Absolute [0.01-0.03 thou/mm3] 0.05 thou/mm3 *HI* (02/18/17 AM) Lymphocytes Absolute [1.5-4.0 thou/mm3] 0.9 thou/mm3 *LOW* (02/18/17 AM) Monocytes Absolute [0.0-0.9 thou/mm3] 0.4 thou/mm3 (02/18/17:29 AM) Eosinophil Absolute [0.0-0.7 thou/mm3] 0.0 thou/mm3 (02/18/17:29 AM) Basophil Absolute [0.0-0.2 thou/mm3] 0.0 thou/mm3 (02/18/1729 AM) Sodium Lvl [135-144 mEq/L] 138 mEq/L (02/18/17:29 AM) Potassium Lvl [3.3-4.8 mEq/L] 4.7 mEq/L (02/18/17: AM) Chloride Lvl [98-107 mEq/L] 100 mEq/L (02/18/17:29 AM) Bicarbonate Lvl [22-30 mmol/L] 26 mmol/L (02/18/17 AM) Anion Gap [10.0-20.0] 16.7 (02/18/17:29 AM) Glucose Lvl [70-108 mg/dL] 228 mg/dL *HI* (02/18/17:29 AM) BUN [7-21 mg/dL] 14 mg/dL (02/18/17:29 AM) Creatinine Lvl [0.50-1.20 mg/dL] 0.63 mg/dL (02/18/17:29 AM) BUN/Creat Ratio 22.2 *NA* (02/18/1729 AM) eGFR AA [>=60] >60 (02/18/17 7:29 AM) eGFR LUANN [>=60] >60 (02/18/17 7:29 AM) Calcium Lvl [8.6-10.2 mg/dL] 9.5 mg/dL (02/18/17 7:29 AM) Total Protein [6.4-8.3 g/dL] 7.4 g/dL (02/18/17 7:29 AM) Albumin Lvl [3.5-5.2 g/dL] 4.2 g/dL (02/18/17 7:29 AM) Globulin 3.2 *NA* (02/18/17 7:29 AM) A/G Ratio [0.9-1.8] 1.3 (02/18/17 7:29 AM) Bilirubin Total [0.1-1.0 mg/dL] 0.3 mg/dL (02/18/17 7:29 AM) Alkaline Phosphatase [39-129 unit/L] 181 unit/L *HI* (02/18/17 7:29 AM) AST [0-39 unit/L] 25 unit/L (02/18/17 7:29 AM) ALT [0-40 unit/L] 29 unit/L (02/18/17 7:29 AM) Magnesium Lvl [1.6-2.4 mg/dL] 1.8 mg/dL (02/18/17 7:29 AM) Estimated Creatinine Clearance 141.97 mL/min (02/18/17 7:51 AM) Immunizations Vaccine Date Refusal Reason influenza virus vaccine, inactivated 09/22/16 pneumococcal 13-valent conjugate vaccine 09/22/16 Procedures Procedure Date Related Diagnosis Body Site Insertion Implanted Port1 12/01/16 Lobectomy of lung2 Tonsillectomy and adenoidectomy 1auto-populated from documented surgical [id number] Social History No data available for this section Assessment and Plan No data available for this section
--- OUTSIDE RECORDS SUMMARY | 2017-04-28 21:08 | XMS REPORT | Summary of Care ---
:1965 Author Organization [facility] Care Team Providers Name Role Phone Hernandes Angel Primary Care Physician Encounter Date(s): 02/20/17 - 02/20/[address] [address] Discharge Disposition: Discharged to Home or Self Care Attending Physician: America Blanchard MD Admitting Physician: America Blanchard MD Vital Signs Most recent to oldest [Reference Range]: 1 2 Temperature Temporal Artery [36-38 DegC] 36.6 DegC (02/20/17 8:55 AM) Peripheral Pulse Rate [60-100 bpm] 75 bpm 79 bpm (02/20/17 10:13 AM) (02/20/17 8:55 AM) Respiratory Rate [12-20 br/min] 20 br/min (02/20/17 8:55 AM) SpO2 [90-100 %] 98 % (02/20/17 8:55 AM) Blood Pressure [90-130/60-90 mmHg] 160/87mmHg 152/93mmHg *HI* *HI* (02/20/17 10:13 AM) (02/20/17 8:55 AM) Mean Arterial Pressure, Cuff 113 mmHg (02/20/17 8:55 AM) Problem List Condition Effective Dates Status [...] Refill(s), Start Date: 01/01/17 9:08:00 CDT, Pharmacy: [place], [place] Special Instructions: Please take day before [...] cap(s), 11 Refill(s), Start Date: 09/14/15 10:57:00 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 , Pharmacy: [place], [place] Start Date: 09/14/15 Stop Date: 11/27/16 Status: Discontinuedfolic acid 1 mg oral tablet 1 tab(s), Oral, Daily, # 30 tab(s), 5 Refill(s), Start Date: 12/25/16 12:57:00 CDT, Pharmacy: [place], [place] Start Date: 12/25/16 Status: Orderedfolic acid [...] Daily, 0 Refill(s), Start Date: 08/31/15 11:05:00 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 Start Date: 08/31/15 Status: OrderedNorco 5 mg-325 mg oral tablet 1 tab(s), Oral, q6hr, # 12 tab(s), 0 Refill(s), Start Date: 12/01/16 12:58:00 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, Pharmacy: [place], [place] Start Date: 12/01/16 Stop Date: 02/18/17 Status: Discontinuedondansetron 8 mg oral tablet 1 tab(s), Oral, q8hr, PRN nausea/vomiting, # 40 tab(s), 3 Refill(s), Start Date : 12/03/16 13:43:00 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, Pharmacy: [place], [place] Start Date: 12/03/16 Status: Orderedprochlorperazine 10 mg oral tablet 1 tab(s), Oral, q6hr, PRN nausea/vomiting, # 40 tab(s), 3 Refill(s), Start Date : 12/03/16 13:42:00 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, [place] Start Date: 12/03/16 Status: OrderedXanax 0.25 mg oral tablet 1 tab(s), Oral, TID, prn anxiety, 0 Refill(s), Start Date: 11/28/16 9:04:00 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 Special Instructions: prn anxiety Start Date: 11/28/16 [...] No data available for this section Immunizations Vaccine Date Refusal Reason influenza virus vaccine, inactivated 09/22/16 pneumococcal 13-valent conjugate vaccine 09/22/16 Procedures Procedure Date Related Diagnosis Body Site Insertion Implanted Port1 12/01/16 Lobectomy of lung2 Tonsillectomy and adenoidectomy 1auto-populated from documented surgical [id number] Social History No data available for this section Assessment and Plan No data available for this section
--- OUTSIDE RECORDS SUMMARY | 2017-04-28 21:08 | XMS REPORT | Summary of Care ---
:[address] [facility] Care Team Providers Name Role Phone Angel Hernandes Primary Care Physician Encounter Date(s): 01/21/17 - 01/21/[address] [address] Discharge Disposition: Discharged to Home or Self [...] 01/21/17 Status: Discontinueddexamethasone 4 mg oral tablet 2 tab(s), Oral, BID, Please take day before and day after chemotherapy., # 20 tab(s), 0 Refill(s), Start Date: 01/01/17 9:08:00 CDT, Pharmacy: [facility] [place], [place] Special Instructions: Please take day before [...] cap(s), 11 Refill(s), Start Date: 09/14/15 10:57:00 [employer]ER , Pharmacy: [place], [place] Start Date: 09/14/15 Stop Date: 11/27/16 Status: Discontinuedfolic acid 1 mg oral tablet 1 tab(s), Oral, Daily, # 30 tab(s), 5 Refill(s), Start Date: 12/25/16 12:57:00 CDT, Pharmacy: [place], [place] Start Date: 12/25/16 Status: Orderedfolic acid 1 mg oral tablet 1 tab(s), Oral, Daily, # 30 tab(s), 0 Refill(s), Start Date: 01/01/17 9:10:00 CDT, other reason (Rx) Start Date: 01/01/17 Status: OrderedHYDROcodone-acetaminophen 5 mg-325 mg oral tablet 2 tab(s), Oral, q4hr, X 1 days, # 24 tab(s), 0 Refill(s), Start Date: 01/20/17 23:45:00 CDT Start Date: 01/20/17 Stop Date: 01/21/17 Status: Completedlisinopril 10 mg oral tablet 1 tab(s), Oral, Daily, 0 Refill(s), Start Date: 08/31/15 11:05:00 [employer] Start Date: 08/31/15 Status: OrderedNorco 5 mg-325 mg oral tablet 1 tab(s), Oral, q6hr, # 12 tab(s), 0 Refill(s), Start Date: 12/01/16 12:58:00 [employer], Pharmacy: [place], [place] Start Date: 12/01/16 Status: Orderedondansetron 8 mg oral tablet 1 tab(s), Oral, q8hr, PRN nausea/vomiting, # 40 tab(s), 3 Refill(s), Start Date : 12/03/16 13:43:00 [employer], Pharmacy: [place], [place] Start Date: 12/03/16 Status: Orderedprochlorperazine 10 mg oral tablet 1 tab(s), Oral, q6hr, PRN nausea/vomiting, # 40 tab(s), 3 Refill(s), Start Date : 12/03/16 13:42:00 [employer] M[employer]ER, [place] Start Date: 12/03/16 Status: OrderedXanax 0.25 mg oral tablet 1 tab(s), Oral, TID, prn anxiety, 0 Refill(s), Start Date: 11/28/16 9:04:00 [employer] Special Instructions: prn anxiety Start Date: [...] oldest [Reference Range]: 1 WBC [4.8-10.8 thou/mm3] 8.8 thou/mm3 (01/21/17 8:16 AM) RBC [4.60-6.00 Mil/mm3] 4.79 Mil/mm3 (01/21/17 8:16 AM) Hgb [14.0-18.0 g/dL] 13.2 g/dL *LOW* (01/21/17 8:16 AM) Hct [42.0-52.0 %] 40.1 % *LOW* (01/21/17 8:16 AM) MCV [80.0-94.0 fL] 83.7 fL (01/21/17 8:16 AM) MCH [25.0-38.0 pg/cell] 27.6 pg/cell (01/21/17 8:16 AM) MCHC [31.0-37.0 g/dL] 32.9 g/dL (01/21/17 8:16 AM) RDW [1.0-48.0 fL] 48.8 fL *HI* (01/21/17 8:16 AM) Platelet [130-400 thou/mm3] 336 thou/mm3 (01/21/17 8:16 AM) Neutrophils % Auto [50.0-75.0 %] 82.5 % *HI* (01/21/17 8:16 AM) Immature Granulocyte Auto [0.1-2.0 %] 0.5 % (01/21/17 8:16 AM) Lymphocytes % Auto [15.0-41.0 %] 9.0 % *LOW* (01/21/17 8:16 AM) Monocytes % Auto [2.0-10.0 %] 8.0 % (01/21/17 8:16 AM) Eosinophils % Auto [0.0-6.0 %] 0.0 % (01/21/17 8:16 AM) Basophil % Auto [0.0-1.0 %] 0.0 % (01/21/17 8:16 AM) Neutrophils Absolute [1.5-5.9 thou/mm3] 7.2 thou/mm3 *HI* (01/21/17 8:16 AM) Immature Gran Absolute [0.01-0.03 thou/mm3] 0.04 thou/mm3 *HI* (01/21/17 8:16 AM) Lymphocytes Absolute [1.5-4.0 thou/mm3] 0.8 thou/mm3 *LOW* (01/21/17 8:16 AM) Monocytes Absolute [0.0-0.9 thou/mm3] 0.7 thou/mm3 (01/21/17 8:16 AM) Eosinophil Absolute [0.0-0.7 thou/mm3] 0.0 thou/mm3 (01/21/17 8:16 AM) Basophil Absolute [0.0-0.2 thou/mm3] 0.0 thou/mm3 (01/21/17 8:16 AM) Sodium Lvl [135-144 mEq/L] 139 mEq/L (01/21/17 8:16 AM) Potassium Lvl [3.3-4.8 mEq/L] 4.7 mEq/L (01/21/17 8:16 AM) Chloride Lvl [98-107 mEq/L] 100 mEq/L (01/21/17 8:16 AM) Bicarbonate Lvl [22-30 mmol/L] 26 mmol/L (01/21/17 8:16 AM) Anion Gap [10.0-20.0] 17.7 (01/21/17 8:16 AM) Glucose Lvl [70-108 mg/dL] 164 mg/dL *HI* (01/21/17 8:16 AM) BUN [7-21 mg/dL] 17 mg/dL (01/21/17 8:16 AM) Creatinine Lvl [0.50-1.20 mg/dL] 0.77 mg/dL (01/21/17 8:16 AM) BUN/Creat Ratio 22.1 *NA* (01/21/17 8:16 AM) eGFR AA [>=60] >60 (01/21/17 8:16 AM) eGFR LUANN [>=60] >60 (01/21/17 8:16 AM) Calcium Lvl [8.6-10.2 mg/dL] 9.8 mg/dL (01/21/17 8:16 AM) Total Protein [6.4-8.3 g/dL] 7.8 g/dL (01/21/17 8:16 AM) Albumin Lvl [3.5-5.2 g/dL] 4.3 g/dL (01/21/17 8:16 AM) Globulin 3.5 *NA* (01/21/17 8:16 AM) A/G Ratio [0.9-1.8] 1.2 (01/21/17 8:16 AM) Bilirubin Total [0.1-1.0 mg/dL] 0.5 mg/dL (01/21/17 8:16 AM) Alkaline Phosphatase [39-129 unit/L] 139 unit/L *HI* (01/21/17 8:16 AM) AST [0-39 unit/L] 32 unit/L (01/21/17 8:16 AM) ALT [0-40 unit/L] 30 unit/L (01/21/17 8:16 AM) Magnesium Lvl [1.6-2.4 mg/dL] 1.8 mg/dL (01/21/17 8:16 AM) Estimated Creatinine Clearance 116.16 mL/min (01/21/17 8:41 AM) Immunizations Vaccine Date Refusal Reason influenza virus vaccine, inactivated 09/22/16 pneumococcal 13-valent conjugate vaccine 09/22/16 Procedures Procedure Date Related Diagnosis Body Site Insertion Implanted Port1 12/01/16 Lobectomy of lung2 Tonsillectomy and adenoidectomy 1auto-populated from documented surgical [id number] Social History No data available for this section Assessment and Plan No data available for this section
--- OUTSIDE RECORDS SUMMARY | 2017-04-28 21:08 | XMS REPORT | Summary of Care ---
:1965 Author Organization [facility] Care Team Providers Name Role Phone Angel Hernandes Primary Care Physician Encounter Date(s): 01/28/17 - 01/28/[address] [address] Discharge Disposition: Discharged to Home or Self Care Attending Physician: America Blanchard MD Admitting Physician: America Blanchard MD Vital Signs Most recent to oldest [Reference Range]: 1 Peripheral Pulse Rate [60-100 bpm] 81 bpm (01/28/17 3:32 PM) Blood Pressure [90-130/60-90 mmHg] 150/82mmHg *HI* (01/28/17 3:32 PM) Mean Arterial Pressure, Cuff 105 mmHg (01/28/17 3:32 PM) Problem List Condition Effective Dates Status [...] Refill(s), Start Date: 01/01/17 9:08:00 CDT, Pharmacy: [place], [place] Special Instructions: Please take day before and day after chemotherapy. Start Date: 01/01/17 Status: Ordereddexamethasone 4 mg oral tablet 1 tab(s), Oral, BID, Take for 3 days, start day before chemotherapy, # 6 tab(s) , 0 Refill(s), Start Date: 01/28/17 8:19:00 CDT, other reason (Rx) Special Instructions: Take for 3 days, start day before chemotherapy Start Date: 01/28/17 Status: Ordereddexamethasone 4 mg oral tablet 1 [...] cap(s), 11 Refill(s), Start Date: 09/14/15 10:57:00 PULL TAB DEALER , Pharmacy: [place], [place] Start Date: 09/14/15 Stop Date: 11/27/16 Status: Discontinuedfolic acid 1 mg oral tablet 1 tab(s), Oral, Daily, # 30 tab(s), 5 Refill(s), Start Date: 12/25/16 12:57:00 CDT, Pharmacy: [place], [place] Start Date: 12/25/16 Status: Orderedfolic acid 1 mg oral tablet 1 tab(s), Oral, Daily, # 30 tab(s), 0 Refill(s), Start Date: 01/28/17 8:19:00 CDT, other reason (Rx) Start Date: 01/28/17 Status: Orderedfolic acid 1 mg oral tablet [...] Daily, 0 Refill(s), Start Date: 08/31/15 11:05:00 PULL TAB DEALER Start Date: 08/31/15 Status: OrderedNorco 5 mg-325 mg oral tablet 1 tab(s), Oral, q6hr, # 12 tab(s), 0 Refill(s), Start Date: 12/01/16 12:58:00 PULL TAB DEALER, Pharmacy: [place] Start Date: 12/01/16 Status: Orderedondansetron 8 mg oral tablet 1 tab(s), Oral, q8hr, PRN nausea/vomiting, # 40 tab(s), 3 Refill(s), Start Date : 12/03/16 13:43:00 PULL TAB DEALER, Pharmacy: [place] Start Date: 12/03/16 Status: Orderedprochlorperazine 10 mg oral tablet 1 tab(s), Oral, q6hr, PRN nausea/vomiting, # 40 tab(s), 3 Refill(s), Start Date : 12/03/16 13:42:00 PULL TAB DEALER, Pharmacy: [place] Start Date: 12/03/16 Status: OrderedXanax 0.25 mg oral tablet 1 tab(s), Oral, TID, prn anxiety, 0 Refill(s), Start Date: 11/28/16 9:04:00 PULL TAB DEALER Special Instructions: prn anxiety Start Date: 11/28/16 [...] oldest [Reference Range]: 1 WBC [4.8-10.8 thou/mm3] 13.0 thou/mm3 *HI* (01/28/17 7:31 AM) RBC [4.60-6.00 Mil/mm3] 5.34 Mil/mm3 (01/28/17:31 AM) Hgb [14.0-18.0 g/dL] 15.1 g/dL (01/28/17 7:31 AM) Hct [42.0-52.0 %] 44.7 % (01/28/17 AM) MCV [80.0-94.0 fL] 83.7 fL (01/28/1731 AM) MCH [25.0-38.0 pg/cell] 28.3 pg/cell (01/28/17 AM) MCHC [31.0-37.0 g/dL] 33.8 g/dL (01/28/1731 AM) RDW [1.0-48.0 fL] 49.1 fL *HI* (01/28/17:31 AM) Platelet [130-400 thou/mm3] 300 thou/mm3 (01/28/17 7:31 AM) Neutrophils % Auto [50.0-75.0 %] 83.2 % *HI* (01/28/17:31 AM) Immature Granulocyte Auto [0.1-2.0 %] 0.7 % (01/28/17:31 AM) Lymphocytes % Auto [15.0-41.0 %] 8.2 % *LOW* (01/28/1731 AM) Monocytes % Auto [2.0-10.0 %] 7.9 % (01/28/17 7:31 AM) Eosinophils % Auto [0.0-6.0 %] 0.0 % (01/28/17 7:31 AM) Basophil % Auto [0.0-1.0 %] 0.0 % (01/28/17:31 AM) Neutrophils Absolute [1.5-5.9 thou/mm3] 10.8 thou/mm3 *HI* (01/28/17 7:31 AM) Immature Gran Absolute [0.01-0.03 thou/mm3] 0.09 thou/mm3 *HI* (01/28/17 7:31 AM) Lymphocytes Absolute [1.5-4.0 thou/mm3] 1.1 thou/mm3 *LOW* (01/28/17 7:31 AM) Monocytes Absolute [0.0-0.9 thou/mm3] 1.0 thou/mm3 *HI* (01/28/17 7:31 AM) Eosinophil Absolute [0.0-0.7 thou/mm3] 0.0 thou/mm3 (01/28/17 7:31 AM) Basophil Absolute [0.0-0.2 thou/mm3] 0.0 thou/mm3 (01/28/17 7:31 AM) Sodium Lvl [135-144 mEq/L] 139 mEq/L (01/28/17:31 AM) Potassium Lvl [3.3-4.8 mEq/L] 4.8 mEq/L (01/28/17 7:31 AM) Chloride Lvl [98-107 mEq/L] 102 mEq/L (01/28/17:31 AM) Bicarbonate Lvl [22-30 mmol/L] 24 mmol/L (01/28/17 7:31 AM) Anion Gap [10.0-20.0] 17.8 (01/28/17 7:31 AM) Glucose Lvl [70-108 mg/dL] 197 mg/dL *HI* (01/28/17 7:31 AM) BUN [7-21 mg/dL] 18 mg/dL (01/28/17 7:31 AM) Creatinine Lvl [0.50-1.20 mg/dL] 0.73 mg/dL (01/28/17 7:31 AM) BUN/Creat Ratio 24.7 *NA* (01/28/17 7:31 AM) eGFR AA [>=60] >60 (01/28/17 7:31 AM) eGFR LUANN [>=60] >60 (01/28/17 7:31 AM) Calcium Lvl [8.6-10.2 mg/dL] 10.1 mg/dL (01/28/17 7:31 AM) Total Protein [6.4-8.3 g/dL] 8.0 g/dL (01/28/17 731 AM) Albumin Lvl [3.5-5.2 g/dL] 4.3 g/dL (01/28/17 7:31 AM) Globulin 3.7 *NA* (01/28/17 7:31 AM) A/G Ratio [0.9-1.8] 1.2 (01/28/17 7:31 AM) Bilirubin Total [0.1-1.0 mg/dL] 0.5 mg/dL (01/28/17 7:31 AM) Alkaline Phosphatase [39-129 unit/L] 130 unit/L *HI* (01/28/17 7:31 AM) AST [0-39 unit/L] 22 unit/L (01/28/17 7:31 AM) ALT [0-40 unit/L] 23 unit/L (01/28/17 7:31 AM) Estimated Creatinine Clearance 122.53 mL/min (01/28/17 8:04 AM) Immunizations Vaccine Date Refusal Reason influenza virus vaccine, inactivated 09/22/16 pneumococcal 13-valent conjugate vaccine 09/22/16 Procedures Procedure Date Related Diagnosis Body Site Insertion Implanted Port1 12/01/16 Lobectomy of lung2 Tonsillectomy and adenoidectomy 1auto-populated from documented surgical [id number] Social History No data available for this section Assessment and Plan No data available for this section
--- OUTSIDE RECORDS SUMMARY | 2017-04-28 21:08 | XMS REPORT | Summary of Care ---
:1965 Author Organization [facility] Care Team Providers Name Role Phone Angel Hernandes Primary Care Physician Encounter Date(s): 03/04/17 - 03/04/[address] [address] Discharge Disposition: Discharged to Home [...] Start Date: 01/01/17 9:08:00 CDT, Pharmacy: [facility] Special Instructions: Please take day before [...] cap(s), 11 Refill(s), Start Date: 09/14/15 10:57:00 EXPERIMENTAL WORKER , Pharmacy: [place], [place] Start Date: 09/14/15 Stop Date: 11/27/16 Status: Discontinuedfolic acid 1 mg oral tablet 1 tab(s), Oral, Daily, # 30 tab(s), 5 Refill(s), Start Date: 12/25/16 12:57:00 CDT, Pharmacy: [place], [place] Start Date: 12/25/16 Status: Orderedfolic acid [...] Daily, 0 Refill(s), Start Date: 08/31/15 11:05:00 EXPERIMENTAL WORKER Start Date: 08/31/15 Status: OrderedNorco 5 mg-325 mg oral tablet 1 tab(s), Oral, q6hr, # 12 tab(s), 0 Refill(s), Start Date: 12/01/16 12:58:00 EXPERIMENTAL WORKER, Pharmacy: [place], [place] Start Date: 12/01/16 Stop Date: 02/18/17 Status: Discontinuedondansetron 8 mg oral tablet 1 tab(s), Oral, q8hr, PRN nausea/vomiting, # 40 tab(s), 3 Refill(s), Start Date : 12/03/16 13:43:00 EXPERIMENTAL WORKER, Pharmacy: [place] Start Date: 12/03/16 Status: Orderedprochlorperazine 10 mg oral tablet 1 tab(s), Oral, q6hr, PRN nausea/vomiting, # 40 tab(s), 3 Refill(s), Start Date : 12/03/16 13:42:00 EXPERIMENTAL WORKER, Pharmacy: [place] Start Date: 12/03/16 Status: OrderedXanax 0.25 mg oral tablet 1 tab(s), Oral, TID, prn anxiety, 0 Refill(s), Start Date: 11/28/16 9:04:00 EXPERIMENTAL WORKER Special Instructions: prn anxiety Start Date: 11/28/16 [...] oldest [Reference Range]: 1 WBC [4.8-10.8 thou/mm3] 6.9 thou/mm3 (03/04/17 11:25 AM) RBC [4.60-6.00 Mil/mm3] 4.62 Mil/mm3 (03/04/17 11:25 AM) Hgb [14.0-18.0 g/dL] 13.3 g/dL *LOW* (03/04/17 11:25 AM) Hct [42.0-52.0 %] 38.8 % *LOW* (03/04/17 11:25 AM) MCV [80.0-94.0 fL] 84.0 fL (03/04/17 11:25 AM) MCH [25.0-38.0 pg/cell] 28.8 pg/cell (03/04/17 11:25 AM) MCHC [31.0-37.0 g/dL] 34.3 g/dL (03/04/17 11:25 AM) RDW [1.0-48.0 fL] 47.1 fL (03/04/17 11:25 AM) Platelet [130-400 thou/mm3] 165 thou/mm3 (03/04/17 11:25 AM) Neutrophils % Auto [50.0-75.0 %] 68.3 % (03/04/17 11:25 AM) Immature Granulocyte Auto [0.1-2.0 %] 0.3 % (03/04/17 11:25 AM) Lymphocytes % Auto [15.0-41.0 %] 19.4 % (03/04/17 11:25 AM) Monocytes % Auto [2.0-10.0 %] 11.6 % *HI* (03/04/17 11:25 AM) Eosinophils % Auto [0.0-6.0 %] 0.4 % (03/04/17 11:25 AM) Basophil % Auto [0.0-1.0 %] 0.0 % (03/04/17 11:25 AM) Neutrophils Absolute [1.5-5.9 thou/mm3] 4.7 thou/mm3 (03/04/17 11:25 AM) Immature Gran Absolute [0.01-0.03 thou/mm3] 0.02 thou/mm3 (03/04/17 11:25 AM) Lymphocytes Absolute [1.5-4.0 thou/mm3] 1.3 thou/mm3 *LOW* (03/04/17 11:25 AM) Monocytes Absolute [0.0-0.9 thou/mm3] 0.8 thou/mm3 (03/04/17 11:25 AM) Eosinophil Absolute [0.0-0.7 thou/mm3] 0.0 thou/mm3 (03/04/17 11:25 AM) Basophil Absolute [0.0-0.2 thou/mm3] 0.0 thou/mm3 (03/04/17 11:25 AM) Immunizations Vaccine Date Refusal Reason influenza virus vaccine, inactivated 09/22/16 pneumococcal 13-valent conjugate vaccine 09/22/16 Procedures Procedure Date Related Diagnosis Body Site Insertion Implanted Port1 12/01/16 Lobectomy of lung2 Tonsillectomy and adenoidectomy 1auto-populated from documented surgical [id number] Social History No data available for this section Assessment and Plan No data available for this section
--- OUTSIDE RECORDS SUMMARY | 2017-04-28 21:08 | XMS REPORT | Summary of Care ---
:1965 Author Organization [facility] Care Team Providers Name Role Phone Angel Hernandes Primary Care Physician Encounter Date(s): 02/11/17 - 02/11/[address] [address] Discharge Disposition: Discharged to Home or Self [...] Refill(s), Start Date: 01/01/17 9:08:00 CDT, Pharmacy: [facility] [place], [place] Special Instructions: Please take day before [...] cap(s), 11 Refill(s), Start Date: 09/14/15 10:57:00 DIRECTOR OF ACQUISITION MARKETING , Pharmacy: [place], [place] Start Date: 09/14/15 Stop Date: 11/27/16 Status: Discontinuedfolic acid 1 mg oral tablet 1 tab(s), Oral, Daily, # 30 tab(s), 5 Refill(s), Start Date: 12/25/16 12:57:00 CDT, Pharmacy: [place], [place] Start Date: 12/25/16 Status: Orderedfolic acid [...] Daily, 0 Refill(s), Start Date: 08/31/15 11:05:00 DIRECTOR OF ACQUISITION MARKETING Start Date: 08/31/15 Status: OrderedNorco 5 mg-325 mg oral tablet 1 tab(s), Oral, q6hr, # 12 tab(s), 0 Refill(s), Start Date: 12/01/16 12:58:00 DIRECTOR OF ACQUISITION MARKETING, Pharmacy: [place], [place] Start Date: 12/01/16 Status: Orderedondansetron 8 mg oral tablet 1 tab(s), Oral, q8hr, PRN nausea/vomiting, # 40 tab(s), 3 Refill(s), Start Date : 12/03/16 13:43:00 DIRECTOR OF ACQUISITION MARKETING, Pharmacy: [place], [place] Start Date: 12/03/16 Status: Orderedprochlorperazine 10 mg oral tablet 1 tab(s), Oral, q6hr, PRN nausea/vomiting, # 40 tab(s), 3 Refill(s), Start Date : 12/03/16 13:42:00 DIRECTOR OF ACQUISITION MARKETING, Pharmacy: [place] Start Date: 12/03/16 Status: OrderedXanax 0.25 mg oral tablet 1 tab(s), Oral, TID, prn anxiety, 0 Refill(s), Start Date: 11/28/16 9:04:00 DIRECTOR OF ACQUISITION MARKETING Special Instructions: prn anxiety Start Date: 11/28/16 [...] oldest [Reference Range]: 1 WBC [4.8-10.8 thou/mm3] 6.4 thou/mm3 (02/11/17 7:59 AM) RBC [4.60-6.00 Mil/mm3] 4.82 Mil/mm3 (02/11/17 7:59 AM) Hgb [14.0-18.0 g/dL] 13.3 g/dL *LOW* (02/11/17 7:59 AM) Hct [42.0-52.0 %] 40.4 % *LOW* (02/11/17 7:59 AM) MCV [80.0-94.0 fL] 83.8 fL (02/11/17 7:59 AM) MCH [25.0-38.0 pg/cell] 27.6 pg/cell (02/11/17 7:59 AM) MCHC [31.0-37.0 g/dL] 32.9 g/dL (02/11/17 7:59 AM) RDW [1.0-48.0 fL] 47.2 fL (02/11/17 7:59 AM) Platelet [130-400 thou/mm3] 164 thou/mm3 (02/11/17 7:59 AM) Neutrophils % Auto [50.0-75.0 %] 70.7 % (02/11/17 7:59 AM) Immature Granulocyte Auto [0.1-2.0 %] 0.3 % (02/11/17 7:59 AM) Lymphocytes % Auto [15.0-41.0 %] 19.5 % (02/11/17 7:59 AM) Monocytes % Auto [2.0-10.0 %] 7.8 % (02/11/17 7:59 AM) Eosinophils % Auto [0.0-6.0 %] 1.7 % (02/11/17 7:59 AM) Basophil % Auto [0.0-1.0 %] 0.0 % (02/11/17 7:59 AM) Neutrophils Absolute [1.5-5.9 thou/mm3] 4.5 thou/mm3 (02/11/17 7:59 AM) Immature Gran Absolute [0.01-0.03 thou/mm3] 0.02 thou/mm3 (02/11/17 7:59 AM) Lymphocytes Absolute [1.5-4.0 thou/mm3] 1.2 thou/mm3 *LOW* (02/11/17 7:59 AM) Monocytes Absolute [0.0-0.9 thou/mm3] 0.5 thou/mm3 (02/11/17 7:59 AM) Eosinophil Absolute [0.0-0.7 thou/mm3] 0.1 thou/mm3 (02/11/17 7:59 AM) Basophil Absolute [0.0-0.2 thou/mm3] 0.0 thou/mm3 (02/11/17 7:59 AM) Immunizations Vaccine Date Refusal Reason influenza virus vaccine, inactivated 09/22/16 pneumococcal 13-valent conjugate vaccine 09/22/16 Procedures Procedure Date Related Diagnosis Body Site Insertion Implanted Port1 12/01/16 Lobectomy of lung2 Tonsillectomy and adenoidectomy 1auto-populated from documented surgical [id number] Social History No data available for this section Assessment and Plan No data available for this section
--- OUTSIDE RECORDS SUMMARY | 2017-04-28 21:08 | XMS REPORT | Summary of Care ---
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) Allergies, Adverse Reactions, Alerts No Known Medication Allergies Medications Flomax 0.4 mg oral capsule 1 cap(s), Oral, HS, # 30 cap(s), 11 Refill(s), Start Date: 09/14/15 10:57:00 RETORT LOAD EXPEDITER , Pharmacy: [place], [place] Start Date: 09/14/15 Stop Date: 11/27/16 Status: Discontinuedlisinopril 10 mg oral tablet tab(s), Oral, Daily, 0 Refill(s), Start Date: 08/31/15 11:05:00 RETORT LOAD EXPEDITER Start Date: 08/31/15 Status: Ordered Results No data available for this section Immunizations No data available for this section Procedures Procedure Date Related Diagnosis Body Site Tonsillectomy and adenoidectomy Social History No data available for this section Assessment and Plan No data available for this section
--- OUTSIDE RECORDS SUMMARY | 2017-04-28 21:08 | XMS REPORT | Summary of Care ---
:1965 Author Organization [facility] Care Team Providers Name Role Phone Hernandes Angel Primary Care Physician Encounter Date(s): 04/01/17 - 04/01/[address] [address] Discharge Disposition: Discharged to Home or Self Care Attending Physician: America Blanchard MD Admitting Physician: America Blanchard MD Vital Signs Most recent to oldest [Reference Range]: 1 2 Temperature Temporal Artery [36-38 DegC] 36.8 DegC (04/01/17 2:17 PM) Peripheral Pulse Rate [60-100 bpm] 112 bpm *HI* (04/01/17 2:17 PM) Respiratory Rate [12-20 br/min] 17 br/min (04/01/17 2:17 PM) SpO2 [90-100 %] 99 % (04/01/17 2:17 PM) SpO2 Location Left hand (04/01/17 2:17 PM) Blood Pressure [90-130/60-90 mmHg] [id number] *HI* *HI* (04/01/17 2:18 PM) (04/01/17 2:17 PM) Mean Arterial Pressure, Cuff 125 mmHg 128 mmHg (04/01/17 2:18 PM) (04/01/17 2:17 PM) Blood Pressure Location Left arm Right arm (04/01/17 2:18 PM) (04/01/17 2:17 PM) 1Result Comment: Dr. Blanchard aware. Pt instructed to f/u with [id number] Comment : Dr. Blanchard aware. Pt informed to f/u with PCP Problem List Condition Effective Dates Status Health [...] Refill(s), Start Date: 01/01/17 9:08:00 CDT, Pharmacy: [place], [place] Special Instructions: Please take day before [...] 11 Refill(s), Start Date: 09/14/15 10:57:00 DIRECTOR INSTITUTION , Pharmacy: [place], [place] Start Date: 09/14/15 Stop Date: 11/27/16 Status: Discontinuedfolic acid 1 mg oral tablet 1 tab(s), Oral, Daily, # 30 tab(s), 5 Refill(s), Start Date: 12/25/16 12:57:00 CDT, Pharmacy: [place], [place] Start Date: 12/25/16 Status: Orderedfolic acid [...] 0 Refill(s), Start Date: 08/31/15 11:05:00 DIRECTOR INSTITUTION Start Date: 08/31/15 Status: OrderedNorco 5 mg-325 mg oral tablet 1 tab(s), Oral, q6hr, # 12 tab(s), 0 Refill(s), Start Date: 12/01/16 12:58:00 DIRECTOR INSTITUTION, Pharmacy: [place], [place] Start Date: 12/01/16 Stop Date: 02/18/17 Status: Discontinuedondansetron 8 mg oral tablet 1 tab(s), Oral, q8hr, PRN nausea/vomiting, # 40 tab(s), 3 Refill(s), Start Date : 12/03/16 13:43:00 DIRECTOR INSTITUTION, Pharmacy: [place], [place] Start Date: 12/03/16 Status: Orderedprochlorperazine 10 mg oral tablet 1 tab(s), Oral, q6hr, PRN nausea/vomiting, # 40 tab(s), 3 Refill(s), Start Date : 12/03/16 13:42:00 DIRECTOR INSTITUTION, Pharmacy: [place], [place] Start Date: 12/03/16 Status: OrderedXanax 0.25 mg oral tablet 1 tab(s), Oral, TID, prn anxiety, 0 Refill(s), Start Date: 11/28/16 9:04:00 DIRECTOR INSTITUTION Special Instructions: prn anxiety Start Date: 11/28/16 [...] Tonsillectomy and adenoidectomy 1auto-populated from documented surgical [id number] Social History No data available for this section Assessment and Plan No data available for this section
--- OUTSIDE RECORDS SUMMARY | 2017-04-28 21:08 | XMS REPORT | Summary of Care ---
:1965 Author Organization [facility] Address [address] [place] [id number]- Care Team Providers Name Role Phone Angel Hernandes Primary Care Physician Encounter Date(s): 12/03/16 - 12/03/[address] [address] Discharge Disposition: Discharged to Home or [...] cap(s), 11 Refill(s), Start Date: 09/14/15 10:57:00 HIDE HOUSE SUPERVISOR , Pharmacy: [place], [place] Start Date: 09/14/15 Stop Date: 11/27/16 Status: Discontinuedlisinopril 10 mg oral tablet 1 tab(s), Oral, Daily, 0 Refill(s), Start Date: 08/31/15 11:05:00 HIDE HOUSE SUPERVISOR Start Date: 08/31/15 Status: OrderedNorco 5 mg-325 mg oral tablet 1 tab(s), Oral, q6hr, # 12 tab(s), 0 Refill(s), Start Date: 12/01/16 12:58:00 HIDE HOUSE SUPERVISOR, Pharmacy: [place], [place] Start Date: 12/01/16 Status: Orderedondansetron 8 mg oral tablet 1 tab(s), Oral, q8hr, PRN nausea/vomiting, # 40 tab(s), 3 Refill(s), Start Date : 12/03/16 13:43:00 HIDE HOUSE SUPERVISOR, Pharmacy: [place], [place] Start Date: 12/03/16 Status: Orderedprochlorperazine 10 mg oral tablet 1 tab(s), Oral, q6hr, PRN nausea/vomiting, # 40 tab(s), 3 Refill(s), Start Date : 12/03/16 13:42:00 HIDE HOUSE SUPERVISOR, Pharmacy: [place] Start Date: 12/03/16 Status: OrderedXanax 0.25 mg oral tablet 1 tab(s), Oral, TID, prn anxiety, 0 Refill(s), Start Date: 11/28/16 9:04:00 HIDE HOUSE SUPERVISOR Special Instructions: prn anxiety Start Date: 11/28/16 Status: Ordered Results Patient Viewable Results Most recent to oldest [Reference Range]: 1 WBC [4.8-10.8 thou/mm3] 5.4 thou/mm3 (12/03/16 9:40 AM) RBC [4.60-6.00 Mil/mm3] 4.88 Mil/mm3 (12/03/16 9:40 AM) Hgb [14.0-18.0 g/dL] 13.5 g/dL *LOW* (12/03/16 9:40 AM) Hct [42.0-52.0 %] 40.5 % *LOW* (12/03/16 9:40 AM) MCV [80.0-94.0 fL] 83.0 fL (12/03/16 9:40 AM) MCH [25.0-38.0 pg/cell] 27.7 pg/cell (12/03/16 9:40 AM) MCHC [31.0-37.0 g/dL] 33.3 g/dL (12/03/16 9:40 AM) RDW [1.0-48.0 fL] 38.1 fL (12/03/16 9:40 AM) Platelet [130-400 thou/mm3] 223 thou/mm3 (12/03/16 9:40 AM) Neutrophils % Auto [50.0-75.0 %] 51.7 % (12/03/16 9:40 AM) Immature Granulocyte Auto [0.1-2.0 %] 0.2 % (12/03/16 9:40 AM) Lymphocytes % Auto [15.0-41.0 %] 30.7 % (12/03/16 9:40 AM) Monocytes % Auto [2.0-10.0 %] 15.0 % *HI* (12/03/16 9:40 AM) Eosinophils % Auto [0.0-6.0 %] 2.0 % (12/03/16 9:40 AM) Basophil % Auto [0.0-1.0 %] 0.4 % (12/03/16 9:40 AM) Neutrophils Absolute [1.5-5.9 thou/mm3] 2.8 thou/mm3 (12/03/16 9:40 AM) Immature Gran Absolute [0.01-0.03 thou/mm3] 0.01 thou/mm3 (12/03/16 9:40 AM) Lymphocytes Absolute [1.5-4.0 thou/mm3] 1.7 thou/mm3 (12/03/16 9:40 AM) Monocytes Absolute [0.0-0.9 thou/mm3] 0.8 thou/mm3 (12/03/16 9:40 AM) Eosinophil Absolute [0.0-0.7 thou/mm3] 0.1 thou/mm3 (12/03/16 9:40 AM) Basophil Absolute [0.0-0.2 thou/mm3] 0.0 thou/mm3 (12/03/16 9:40 AM) Sodium Lvl [135-144 mEq/L] 139 mEq/L (12/03/16 9:40 AM) Potassium Lvl [3.3-4.8 mEq/L] 4.0 mEq/L (12/03/16 9:40 AM) Chloride Lvl [98-107 mEq/L] 100 mEq/L (12/03/16 9:40 AM) Bicarbonate Lvl [22-30 mmol/L] 30 mmol/L (12/03/16 9:40 AM) Anion Gap [10.0-20.0] 13.0 (12/03/16 9:40 AM) Glucose Lvl [70-108 mg/dL] 92 mg/dL (12/03/16 9:40 AM) BUN [7-21 mg/dL] 9 mg/dL (12/03/16 9:40 AM) Creatinine Lvl [0.50-1.20 mg/dL] 0.58 mg/dL (12/03/16 9:40 AM) BUN/Creat Ratio 15.5 *NA* (12/03/16 9:40 AM) eGFR AA [>=60] >60 (12/03/16 9:40 AM) eGFR LUANN [>=60] >60 (12/03/16 9:40 AM) Calcium Lvl [8.6-10.2 mg/dL] 9.3 mg/dL (12/03/16 9:40 AM) Total Protein [6.4-8.3 g/dL] 7.8 g/dL (12/03/16 9:40 AM) Albumin Lvl [3.5-5.2 g/dL] 4.1 g/dL (12/03/16 9:40 AM) Globulin 3.7 *NA* (12/03/16 9:40 AM) A/G Ratio [0.9-1.8] 1.1 (12/03/16 9:40 AM) Bilirubin Total [0.1-1.0 mg/dL] 0.4 mg/dL (12/03/16 9:40 AM) Alkaline Phosphatase [39-129 unit/L] 105 unit/L (12/03/16 9:40 AM) AST [0-39 unit/L] 33 unit/L (12/03/16 9:40 AM) ALT [0-40 unit/L] 31 unit/L (12/03/16 9:40 AM) Estimated Creatinine Clearance 156.15 mL/min (12/03/16 10:11 AM) Immunizations No data available for this section Procedures Procedure Date Related Diagnosis Body Site Insertion Implanted Port1 12/01/16 Lobectomy of lung2 Tonsillectomy and adenoidectomy 1auto-populated from documented surgical [id number] Social History No data available for this section Assessment and Plan No data available for this section
--- OUTSIDE RECORDS SUMMARY | 2017-04-28 21:09 | XMS REPORT | Summary of Care ---
:1965 Author Organization [facility] Address [address] [place] [id number] Care Team Providers Name Role Phone Angel Hernandes Primary Care Physician Encounter Date(s): 01/02/17 - 01/02/[address] [address]- [facility] Discharge Disposition: 01 Discharged to Home or Self Care Attending Physician: America Blanchard MD Admitting Physician: America Blanchard MD Vital Signs Most recent to oldest [Reference Range]: 1 2 Temperature Temporal Artery [36-38 DegC] 37.1 DegC (01/02/17 10:45 AM) Peripheral Pulse Rate [60-100 bpm] 90 bpm 103 bpm (01/02/17 11:59 AM) *HI* (01/02/17 10:45 AM) Respiratory Rate [12-20 br/min] 20 br/min (01/02/17 10:45 AM) SpO2 [90-100 %] 98 % (01/02/17 10:45 AM) Blood Pressure [90-130/60-90 mmHg] 137/77mmHg 134/80mmHg *HI* *HI* (01/02/17 11:59 AM) (01/02/17 10:45 AM) Mean Arterial Pressure, Cuff 98 mmHg (01/02/17 10:45 AM) Problem List Condition Effective Dates Status [...] Refill(s), Start Date: 01/01/17 9:08:00 CDT, Pharmacy: [place], [place] Special Instructions: Please take day before [...] cap(s), 11 Refill(s), Start Date: 09/14/15 10:57:00 [facility] , Pharmacy: [place], [place] Start Date: 09/14/15 Stop Date: 11/27/16 Status: Discontinuedfolic acid 1 mg oral tablet 1 tab(s), Oral, Daily, # 30 tab(s), 5 Refill(s), Start Date: 12/25/16 12:57:00 CDT, Pharmacy: [place], [place] Start Date: 12/25/16 Status: Orderedfolic acid 1 mg oral tablet 1 tab(s), Oral, Daily, # 30 tab(s), 0 Refill(s), Start Date: 01/01/17 9:10:00 CDT, other reason (Rx) Start Date: 01/01/17 Status: Orderedlisinopril 10 mg oral tablet 1 tab(s), Oral, Daily, 0 Refill(s), Start Date: 08/31/15 11:05:00 [facility] Start Date: 08/31/15 Status: OrderedNorco 5 mg-325 mg oral tablet 1 tab(s), Oral, q6hr, # 12 tab(s), 0 Refill(s), Start Date: 12/01/16 12:58:00 [facility], Pharmacy: [place], [place] Start Date: 12/01/16 Status: Orderedondansetron 8 mg oral tablet 1 tab(s), Oral, q8hr, PRN nausea/vomiting, # 40 tab(s), 3 Refill(s), Start Date : 12/03/16 13:43:00 [facility] [employer] [facility], Pharmacy: [facility], [place] Start Date: 12/03/16 Status: Orderedprochlorperazine 10 mg oral tablet 1 tab(s), Oral, q6hr, PRN nausea/vomiting, # 40 tab(s), 3 Refill(s), Start Date : 12/03/16 13:42:00 [facility] [employer] [facility], Pharmacy: [facility], [place] Start Date: 12/03/16 Status: OrderedXanax 0.25 mg oral tablet 1 tab(s), Oral, TID, prn anxiety, 0 Refill(s), Start Date: 11/28/16 9:04:00 [facility] Special Instructions: prn anxiety Start Date: 11/28/16 [...] Tonsillectomy and adenoidectomy 1auto-populated from documented surgical [id number] Social History No data available for this section Assessment and Plan No data available for this section
--- OUTSIDE RECORDS SUMMARY | 2017-04-28 21:09 | XMS REPORT | Summary of Care ---
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 , Pharmacy: [place], [place] Start Date: 09/14/15 Stop Date: 11/27/16 Status: Discontinuedfolic acid 1 mg oral tablet 1 tab(s), Oral, Daily, # 30 tab(s), 5 Refill(s), Start Date: 12/25/16 12:57:00 CDT, Pharmacy: [place], [place] Start Date: 12/25/16 Status: Orderedfolic acid [...] Daily, 0 Refill(s), Start Date: 08/31/15 11:05:00 CORRUGATED FASTENER DRIVER Start Date: 08/31/15 Status: OrderedNorco 5 mg-325 mg oral tablet 1 tab(s), Oral, q6hr, # 12 tab(s), 0 Refill(s), Start Date: 12/01/16 12:58:00 CORRUGATED FASTENER DRIVER, Pharmacy: [place], [place] Start Date: 12/01/16 Stop Date: 02/18/17 Status: Discontinuedondansetron 8 mg oral tablet 1 tab(s), Oral, q8hr, PRN nausea/vomiting, # 40 tab(s), 3 Refill(s), Start Date : 12/03/16 13:43:00 CORRUGATED FASTENER DRIVER, Pharmacy: [place], [place] Start Date: 12/03/16 Status: Orderedprochlorperazine 10 mg oral tablet 1 tab(s), Oral, q6hr, PRN nausea/vomiting, # 40 tab(s), 3 Refill(s), Start Date : 12/03/16 13:42:00 CORRUGATED FASTENER DRIVER, Pharmacy: [place], [place] Start Date: 12/03/16 Status: OrderedXanax 0.25 mg oral tablet 1 tab(s), Oral, TID, prn anxiety, 0 Refill(s), Start Date: 11/28/16 9:04:00 CORRUGATED FASTENER DRIVER Special Instructions: prn anxiety Start Date: 11/28/16 [...] oldest [Reference Range]: 1 WBC [4.8-10.8 thou/mm3] 4.0 thou/mm3 *LOW* (02/25/17 10:34 AM) RBC [4.60-6.00 Mil/mm3] 5.20 Mil/mm3 (02/25/17 10:34 AM) Hgb [14.0-18.0 g/dL] 14.4 g/dL (02/25/17 10:34 AM) Hct [42.0-52.0 %] 42.4 % (02/25/17 10:34 AM) MCV [80.0-94.0 fL] 81.5 fL (02/25/17 10:34 AM) MCH [25.0-38.0 pg/cell] 27.7 pg/cell (02/25/17 10:34 AM) MCHC [31.0-37.0 g/dL] 34.0 g/dL (02/25/17 10:34 AM) RDW [1.0-48.0 fL] 43.9 fL (02/25/17 10:34 AM) Platelet [130-400 thou/mm3] 112 thou/mm3 *LOW* (02/25/17 10:34 AM) Neutrophils % Auto [50.0-75.0 %] 41.2 % *LOW* (02/25/17 10:34 AM) Immature Granulocyte Auto [0.1-2.0 %] 0.5 % (02/25/17 10:34 AM) Lymphocytes % Auto [15.0-41.0 %] 43.5 % *HI* (02/25/17 10:34 AM) Monocytes % Auto [2.0-10.0 %] 13.8 % *HI* (02/25/17 10:34 AM) Eosinophils % Auto [0.0-6.0 %] 1.0 % (02/25/17 10:34 AM) Basophil % Auto [0.0-1.0 %] 0.0 % (02/25/17 10:34 AM) Neutrophils Absolute [1.5-5.9 thou/mm3] 1.7 thou/mm3 (02/25/17 10:34 AM) Immature Gran Absolute [0.01-0.03 thou/mm3] 0.02 thou/mm3 (02/25/17 10:34 AM) Lymphocytes Absolute [1.5-4.0 thou/mm3] 1.8 thou/mm3 (02/25/17 10:34 AM) Monocytes Absolute [0.0-0.9 thou/mm3] 0.6 thou/mm3 (02/25/17 10:34 AM) Eosinophil Absolute [0.0-0.7 thou/mm3] 0.0 thou/mm3 (02/25/17 10:34 AM) Basophil Absolute [0.0-0.2 thou/mm3] 0.0 thou/mm3 (02/25/17 10:34 AM) Immunizations Vaccine Date Refusal Reason influenza virus vaccine, inactivated 09/22/16 pneumococcal 13-valent conjugate vaccine 09/22/16 Procedures Procedure Date Related Diagnosis Body Site Insertion Implanted Port1 12/01/16 Lobectomy of lung2 Tonsillectomy and adenoidectomy 1auto-populated from documented surgical [id number] Social History No data available for this section Assessment and Plan No data available for this section
--- OUTSIDE RECORDS SUMMARY | 2017-04-28 21:09 | XMS REPORT | Summary of Care ---
:1965 Author Organization [facility] Address [address] [place] [address] Care Team Providers Name Role Phone Angel Hernandes Primary Care Physician Encounter Date(s): 12/25/16 - 12/25/16 [facility], [address] [place], [place] [address] Discharge Disposition: 01 Discharged to Home or Self Care Attending Physician: America Blanchard MD Referring Physician: Angel Hernandes MD Vital Signs Most recent to oldest [Reference Range]: 1 Temperature Temporal Artery [36.0-38.0 DegC] 36.7 DegC (12/25/16 11:31 AM) Peripheral Pulse Rate [60-100 bpm] 92 bpm (12/25/16 11:31 AM) Respiratory Rate [12-20 br/min] 20 br/min (12/25/16 11:31 AM) SpO2 [90-100 %] 100 % (12/25/16 11:31 AM) Blood Pressure [90-130/60-90 mmHg] 135/71mmHg *HI* (12/25/16 11:31 AM) Mean Arterial Pressure, Cuff 92 mmHg (12/25/16 11:31 AM) Most recent to oldest [Reference Range]: 1 Height/Length Measured 178 cm (12/25/16 11:31 AM) Height/Length Estimated 178 cm (12/25/16 11:31 AM) Weight Estimated 77.2 kg (12/25/16 11:31 AM) Weight Dosing 77.2 kg (12/25/16 11:31 AM) Weight Measured 77.2 kg (12/25/16 11:31 AM) BSA Measured 1.95 m2 (12/25/16 11:31 AM) BSA Estimated 1.95 m2 (12/25/16 11:31 AM) Body Mass Index Measured 24.37 kg/m2 (12/25/16 11:31 AM) Body Mass Index Estimated 24.37 kg/m2 (12/25/16 11:31 AM) Problem List Condition Effective Dates Status Health Status Informant 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) Hypertension(Confirmed) Active 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) Allergies, Adverse Reactions, Alerts Substance Reaction Severity Status fentaNYL Erythema Severe Active Medications Flomax 0.4 mg oral capsule 1 cap(s), Oral, HS, # 30 cap(s), 11 Refill(s), Start Date: 09/14/15 10:57:00 FUNERAL PLANNER , Pharmacy: [place], [place] Start Date: 09/14/15 Stop Date: 11/27/16 Status: Discontinuedfolic acid 1 mg oral tablet 1 tab(s), Oral, Daily, # 30 tab(s), 5 Refill(s), Start Date: 12/25/16 12:57:00 CDT, Pharmacy: [place], [place] Start Date: 12/25/16 Status: Orderedlisinopril 10 mg oral tablet 1 tab(s), Oral, Daily, 0 Refill(s), Start Date: 08/31/15 11:05:00 FUNERAL PLANNER Start Date: 08/31/15 Status: OrderedNorco 5 mg-325 mg oral tablet 1 tab(s), Oral, q6hr, # 12 tab(s), 0 Refill(s), Start Date: 12/01/16 12:58:00 FUNERAL PLANNER, Pharmacy: [place], [place] Start Date: 12/01/16 Status: Orderedondansetron 8 mg oral tablet 1 tab(s), Oral, q8hr, PRN nausea/vomiting, # 40 tab(s), 3 Refill(s), Start Date : 12/03/16 13:43:00 FUNERAL PLANNER, Pharmacy: [place], [place] Start Date: 12/03/16 Status: Orderedprochlorperazine 10 mg oral tablet 1 tab(s), Oral, q6hr, PRN nausea/vomiting, # 40 tab(s), 3 Refill(s), Start Date : 12/03/16 13:42:00 FUNERAL PLANNER, Pharmacy: [place] Start Date: 12/03/16 Status: OrderedXanax 0.25 mg oral tablet 1 tab(s), Oral, TID, prn anxiety, 0 Refill(s), Start Date: 11/28/16 9:04:00 FUNERAL PLANNER Special Instructions: prn anxiety Start Date: 11/28/16 [...] Range]: 1 Estimated Creatinine Clearance 133.50 mL/min (12/25/16 11:32 AM) Immunizations No data available for this section Procedures Procedure Date Related Diagnosis Body Site Insertion Implanted Port1 12/01/16 Lobectomy of lung2 Tonsillectomy and adenoidectomy 1auto-populated from documented surgical [id number] Social History No data available for this section Assessment and Plan No data available for this section
--- OUTSIDE RECORDS SUMMARY | 2017-04-28 21:09 | XMS REPORT | Summary of Care ---
:1965 Author Organization [facility] Care Team Providers Name Role Phone Angel Hernandes Primary Care Physician Encounter Date(s): 01/20/17 - 01/21/[address] [address] Discharge Diagnosis: Facial contusion Discharge Diagnosis: Syncope Discharge Diagnosis: Closed Fracture Of Zygomatic Tripod Discharge Disposition: 01 Discharged to Home or Self Care Attending Physician: Santo Echevarria MD Admitting Physician: Santo Echevarria MD Vital Signs Most recent to oldest 1 2 3 [Reference Range]: Temperature Temporal Artery 36.7 DegC [36.0-38.0 DegC] (01/20/17 10:07 PM) Heart Rate Monitored [60-100 84 bpm 82 bpm 93 bpm bpm] (01/21/17 12:01 AM) (01/20/17 11:18 PM) (01/20/17 10:07 PM) Respiratory Rate [12-20 24 br/min 28 br/min 18 br/min br/min] *HI* *>HHI* (01/20/17 10:07 PM) (01/21/17 12:01 AM) (01/20/17 11:18 PM) SpO2 [90-100 %] 97 % 99 % 99 % (01/21/17 12:01 AM) (01/20/17 11:18 PM) (01/20/17 10:07 PM) Blood Pressure [90-130/60-90 164/80mmHg 157/85mmHg 168/94mmHg mmHg] *HI* *HI* *HI* (01/21/17 12:01 AM) (01/20/17 11:18 PM) (01/20/17 10:07 PM) Mean Arterial Pressure 103 mmHg Monitor Measure (01/20/17 11:18 PM) Most recent to oldest [Reference Range]: 1 2 3 Weight Estimated 76.36 kg (01/20/17 10:07 PM) Weight Dosing 76.36 kg1 (01/20/17 10:11 PM) 1Result Comment: This result was because the dosing weight was either not entered or it is>30 days old. 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 , Pharmacy: [place], [place] Start Date: 09/14/15 Stop Date: 11/27/16 Status: Discontinuedfolic acid 1 mg oral tablet 1 tab(s), Oral, Daily, # 30 tab(s), 5 Refill(s), Start Date: 12/25/16 12:57:00 CDT, Pharmacy: [place], [place] Start Date: 12/25/16 Status: Orderedfolic acid [...] Daily, 0 Refill(s), Start Date: 08/31/15 11:05:00 CONTACT AND SERVICE CLERKS SUPERVISOR Start Date: 08/31/15 Status: OrderedNorco 5 mg-325 mg oral tablet 1 tab(s), Oral, q6hr, # 12 tab(s), 0 Refill(s), Start Date: 12/01/16 12:58:00 CONTACT AND SERVICE CLERKS SUPERVISOR, Pharmacy: [place], [place] Start Date: 12/01/16 Status: Orderedondansetron 8 mg oral tablet 1 tab(s), Oral, q8hr, PRN nausea/vomiting, # 40 tab(s), 3 Refill(s), Start Date : 12/03/16 13:43:00 CONTACT AND SERVICE CLERKS SUPERVISOR, Pharmacy: [place], [place] Start Date: 12/03/16 Status: Orderedprochlorperazine 10 mg oral tablet 1 tab(s), Oral, q6hr, PRN nausea/vomiting, # 40 tab(s), 3 Refill(s), Start Date : 12/03/16 13:42:00 CONTACT AND SERVICE CLERKS SUPERVISOR, Pharmacy: [place] Start Date: 12/03/16 Status: OrderedXanax 0.25 mg oral tablet 1 tab(s), Oral, TID, prn anxiety, 0 Refill(s), Start Date: 11/28/16 9:04:00 CONTACT AND SERVICE CLERKS SUPERVISOR Special Instructions: prn anxiety Start Date: [...] recent to oldest [Reference Range]: 1 2 WBC [4.8-10.8 thou/mm3] 7.6 thou/mm3 (01/20/17 10:46 PM) RBC [4.60-6.00 Mil/mm3] 4.46 Mil/mm3 *LOW* (01/20/17 10:46 PM) Hgb [14.0-18.0 g/dL] 12.0 g/dL *LOW* (01/20/17 10:46 PM) Hct [42.0-52.0 %] 37.0 % *LOW* (01/20/17 10:46 PM) MCV [80.0-94.0 fL] 83.0 fL (01/20/17 10:46 PM) MCH [25.0-38.0 pg/cell] 26.9 pg/cell (01/20/17 10:46 PM) MCHC [31.0-37.0 g/dL] 32.4 g/dL (01/20/17 10:46 PM) RDW [1.0-48.0 fL] 47.4 fL (01/20/17 10:46 PM) Platelet [130-400 thou/mm3] 285 thou/mm3 (01/20/17 10:46 PM) Neutrophils % Auto [50.0-75.0 %] 88.0 % *HI* (01/20/17 10:46 PM) Immature Granulocyte Auto [0.1-2.0 %] 0.3 % (01/20/17 10:46 PM) Lymphocytes % Auto [15.0-41.0 %] 8.0 % *LOW* (01/20/17 10:46 PM) Monocytes % Auto [2.0-10.0 %] 3.7 % (01/20/17 10:46 PM) Eosinophils % Auto [0.0-6.0 %] 0.0 % (01/20/17 10:46 PM) Basophil % Auto [0.0-1.0 %] 0.0 % (01/20/17 10:46 PM) Neutrophils Absolute [1.5-5.9 thou/mm3] 6.7 thou/mm3 *HI* (01/20/17 10:46 PM) Immature Gran Absolute [0.01-0.03 thou/mm3] 0.02 thou/mm3 (01/20/17 10:46 PM) Lymphocytes Absolute [1.5-4.0 thou/mm3] 0.6 thou/mm3 *LOW* (01/20/17 10:46 PM) Monocytes Absolute [0.0-0.9 thou/mm3] 0.3 thou/mm3 (01/20/17 10:46 PM) Eosinophil Absolute [0.0-0.7 thou/mm3] 0.0 thou/mm3 (01/20/17 10:46 PM) Basophil Absolute [0.0-0.2 thou/mm3] 0.0 thou/mm3 (01/20/17 10:46 PM) Sodium Lvl [135-144 mEq/L] 138 mEq/L (01/20/17 10:46 PM) Potassium Lvl [3.3-4.8 mEq/L] 4.1 mEq/L (01/20/17 10:46 PM) Chloride Lvl [98-107 mEq/L] 101 mEq/L (01/20/17 10:46 PM) Bicarbonate Lvl [22-30 mmol/L] 25 mmol/L (01/20/17 10:46 PM) Anion Gap [10.0-20.0] 16.1 (01/20/17 10:46 PM) Glucose Lvl [70-108 mg/dL] 153 mg/dL *HI* (01/20/17 10:46 PM) BUN [7-21 mg/dL] 14 mg/dL (01/20/17 10:46 PM) Creatinine Lvl [0.50-1.20 mg/dL] 0.75 mg/dL (01/20/17 10:46 PM) BUN/Creat Ratio 18.7 *NA* (01/20/17 10:46 PM) eGFR AA [>=60] >60 (01/20/17 10:46 PM) eGFR LUANN [>=60] >60 (01/20/17 10:46 PM) Calcium Lvl [8.6-10.2 mg/dL] 9.5 mg/dL (01/20/17 10:46 PM) Total Protein [6.4-8.3 g/dL] 7.4 g/dL (01/20/17 10:46 PM) Albumin Lvl [3.5-5.2 g/dL] 4.1 g/dL (01/20/17 10:46 PM) Globulin 3.3 *NA* (01/20/17 10:46 PM) A/G Ratio [0.9-1.8] 1.2 (01/20/17 10:46 PM) Bilirubin Total [0.1-1.0 mg/dL] 0.4 mg/dL (01/20/17 10:46 PM) Alkaline Phosphatase [39-129 unit/L] 133 unit/L *HI* (01/20/17 10:46 PM) AST [0-39 unit/L] 37 unit/L (01/20/17 10:46 PM) ALT [0-40 unit/L] 30 unit/L (01/20/17 10:46 PM) Estimated Creatinine Clearance 119.26 mL/min 124.23 mL/min (01/20/17 11:16 PM) (01/20/17 10:11 PM) Immunizations Vaccine Date Refusal Reason influenza virus vaccine, inactivated 09/22/16 pneumococcal 13-valent conjugate vaccine 09/22/16 Procedures Procedure Date Related Diagnosis Body Site Insertion Implanted Port1 12/01/16 Lobectomy of lung2 Tonsillectomy and adenoidectomy 1auto-populated from documented surgical [id number] Social History No data available for this section Assessment and Plan No data available for this section
--- OUTSIDE RECORDS SUMMARY | 2017-04-28 21:09 | XMS REPORT | Summary of Care ---
:1965 Author Organization [facility] Care Team Providers Name Role Phone Angel Hernandes Primary Care Physician Encounter Date(s): 01/15/17 - 01/15/[address] [address] Discharge Disposition: Discharged to Home or Self [...] Refill(s), Start Date: 01/01/17 9:08:00 CDT, Pharmacy: [facility] [place], [place] Special Instructions: Please take day before [...] Refill(s), Start Date: 09/14/15 10:57:00 DIRECTOR OF LITIGATION , Pharmacy: [place], [place] Start Date: 09/14/15 Stop Date: 11/27/16 Status: Discontinuedfolic acid 1 mg oral tablet 1 tab(s), Oral, Daily, # 30 tab(s), 5 Refill(s), Start Date: 12/25/16 12:57:00 CDT, Pharmacy: [place], [place] Start Date: 12/25/16 Status: Orderedfolic acid 1 mg oral tablet 1 tab(s), Oral, Daily, # 30 tab(s), 0 Refill(s), Start Date: 01/01/17 9:10:00 CDT, other reason (Rx) Start Date: 01/01/17 Status: Orderedlisinopril 10 mg oral tablet 1 tab(s), Oral, Daily, 0 Refill(s), Start Date: 08/31/15 11:05:00 DIRECTOR OF LITIGATION Start Date: 08/31/15 Status: OrderedNorco 5 mg-325 mg oral tablet 1 tab(s), Oral, q6hr, # 12 tab(s), 0 Refill(s), Start Date: 12/01/16 12:58:00 DIRECTOR OF LITIGATION, Pharmacy: [place], [place] Start Date: 12/01/16 Status: Orderedondansetron 8 mg oral tablet 1 tab(s), Oral, q8hr, PRN nausea/vomiting, # 40 tab(s), 3 Refill(s), Start Date : 12/03/16 13:43:00 DIRECTOR OF LITIGATION, Pharmacy: [place], [place] Start Date: 12/03/16 Status: Orderedprochlorperazine 10 mg oral tablet 1 tab(s), Oral, q6hr, PRN nausea/vomiting, # 40 tab(s), 3 Refill(s), Start Date : 12/03/16 13:42:00 DIRECTOR OF LITIGATION, Pharmacy: [place], [place] Start Date: 12/03/16 Status: OrderedXanax 0.25 mg oral tablet 1 tab(s), Oral, TID, prn anxiety, 0 Refill(s), Start Date: 11/28/16 9:04:00 DIRECTOR OF LITIGATION Special Instructions: prn anxiety Start Date: 11/28/16 [...] oldest [Reference Range]: 1 WBC [4.8-10.8 thou/mm3] 8.9 thou/mm3 (01/15/17 7:57 AM) RBC [4.60-6.00 Mil/mm3] 4.59 Mil/mm3 *LOW* (01/15/17 7:57 AM) Hgb [14.0-18.0 g/dL] 12.4 g/dL *LOW* (01/15/17 7:57 AM) Hct [42.0-52.0 %] 38.4 % *LOW* (01/15/17 7:57 AM) MCV [80.0-94.0 fL] 83.7 fL (01/15/17 7:57 AM) MCH [25.0-38.0 pg/cell] 27.0 pg/cell (01/15/17 7:57 AM) MCHC [31.0-37.0 g/dL] 32.3 g/dL (01/15/17 7:57 AM) RDW [1.0-48.0 fL] 44.4 fL (01/15/17 7:57 AM) Platelet [130-400 thou/mm3] 150 thou/mm3 (01/15/17 7:57 AM) Neutrophils % Auto [50.0-75.0 %] 75.4 % *HI* (01/15/17 7:57 AM) Immature Granulocyte Auto [0.1-2.0 %] 0.2 % (01/15/17 7:57 AM) Lymphocytes % Auto [15.0-41.0 %] 17.2 % (01/15/17 7:57 AM) Monocytes % Auto [2.0-10.0 %] 5.7 % (01/15/17 7:57 AM) Eosinophils % Auto [0.0-6.0 %] 1.5 % (01/15/17 7:57 AM) Basophil % Auto [0.0-1.0 %] 0.0 % (01/15/17 7:57 AM) Neutrophils Absolute [1.5-5.9 thou/mm3] 6.7 thou/mm3 *HI* (01/15/17 7:57 AM) Immature Gran Absolute [0.01-0.03 thou/mm3] 0.02 thou/mm3 (01/15/17 7:57 AM) Lymphocytes Absolute [1.5-4.0 thou/mm3] 1.5 thou/mm3 (01/15/17 7:57 AM) Monocytes Absolute [0.0-0.9 thou/mm3] 0.5 thou/mm3 (01/15/17 7:57 AM) Eosinophil Absolute [0.0-0.7 thou/mm3] 0.1 thou/mm3 (01/15/17 7:57 AM) Basophil Absolute [0.0-0.2 thou/mm3] 0.0 thou/mm3 (01/15/17 7:57 AM) Immunizations No data available for this section Procedures Procedure Date Related Diagnosis Body Site Insertion Implanted Port1 12/01/16 Lobectomy of lung2 Tonsillectomy and adenoidectomy 1auto-populated from documented surgical [id number] Social History No data available for this section Assessment and Plan No data available for this section
--- OUTSIDE RECORDS SUMMARY | 2017-04-28 21:10 | XMS REPORT | Summary of Care ---
:1965 Author Organization [facility] Address [address] [place] [address] Care Team Providers Name Role Phone Angel Hernandes Primary Care Physician Encounter Date(s): 01/21/17 - 01/21/17 [facility], [address] [place], [place] [address] Discharge Disposition: 01 Discharged to Home or Self Care Attending Physician: America Blanchard MD Referring Physician: Angel Hernandes MD Vital Signs Most recent to oldest [Reference Range]: 1 Temperature Temporal Artery [36.0-38.0 DegC] 36.6 DegC (01/21/17 8:34 AM) Peripheral Pulse Rate [60-100 bpm] 81 bpm (01/21/17 8:34 AM) Respiratory Rate [12-20 br/min] 18 br/min (01/21/17 8:34 AM) SpO2 [90-100 %] 99 % (01/21/17 8:34 AM) Blood Pressure [90-130/60-90 mmHg] 142/80mmHg *HI* (01/21/17 8:34 AM) Mean Arterial Pressure, Cuff 101 mmHg (01/21/17 8:34 AM) Most recent to oldest [Reference Range]: 1 Height/Length Measured 178 cm (01/21/17 8:34 AM) Height/Length Estimated 178 cm (01/21/17 8:34 AM) Weight Estimated 76.1 kg (01/21/17 8:34 AM) Weight Dosing 76.1 kg (01/21/17 8:34 AM) Weight Measured 76.1 kg (01/21/17 8:34 AM) BSA Measured 1.94 m2 (01/21/17 8:34 AM) BSA Estimated 1.94 m2 (01/21/17 8:34 AM) Body Mass Index Measured 24.02 kg/m2 (01/21/17 8:34 AM) Body Mass Index Estimated 24.02 kg/m2 (01/21/17 8:34 AM) Problem List Condition Effective Dates [...] Refill(s), Start Date: 01/01/17 9:08:00 CDT, Pharmacy: [place], [place] Special Instructions: Please take day before [...] cap(s), 11 Refill(s), Start Date: 09/14/15 10:57:00 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 , 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: [place], [place] Start Date: 09/14/15 Stop Date: 11/27/16 Status: Discontinuedfolic acid 1 mg oral tablet 1 tab(s), Oral, Daily, # 30 tab(s), 5 Refill(s), Start Date: 12/25/16 12:57:00 CDT, Pharmacy: [place], [place] Start Date: 12/25/16 Status: Orderedfolic acid [...] Daily, 0 Refill(s), Start Date: 08/31/15 11:05:00 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 Start Date: 08/31/15 Status: OrderedNorco 5 mg-325 mg oral tablet 1 tab(s), Oral, q6hr, # 12 tab(s), 0 Refill(s), Start Date: 12/01/16 12:58:00 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, Pharmacy: [place], [place] Start Date: 12/01/16 Status: Orderedondansetron 8 mg oral tablet 1 tab(s), Oral, q8hr, PRN nausea/vomiting, # 40 tab(s), 3 Refill(s), Start Date : 12/03/16 13:43:00 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, Pharmacy: [place], [place] Start Date: 12/03/16 Status: Orderedprochlorperazine 10 mg oral tablet 1 tab(s), Oral, q6hr, PRN nausea/vomiting, # 40 tab(s), 3 Refill(s), Start Date : 12/03/16 13:42:00 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, Pharmacy: [place], [place] Start Date: 12/03/16 Status: OrderedXanax 0.25 mg oral tablet 1 tab(s), Oral, TID, prn anxiety, 0 Refill(s), Start Date: 11/28/16 9:04:00 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 Special Instructions: prn anxiety Start Date: 11/28/16 [...] oldest [Reference Range]: 1 Estimated Creatinine Clearance 119.26 mL/min (01/21/17 8:40 AM) Immunizations Vaccine Date Refusal Reason influenza virus vaccine, inactivated 09/22/16 pneumococcal 13-valent conjugate vaccine 09/22/16 Procedures Procedure Date Related Diagnosis Body Site Insertion Implanted Port1 12/01/16 Lobectomy of lung2 Tonsillectomy and adenoidectomy 1auto-populated from documented surgical [id number] Social History No data available for this section Assessment and Plan No data available for this section
--- OUTSIDE RECORDS SUMMARY | 2017-04-28 21:10 | XMS REPORT | Summary of Care ---
:1965 Author Organization [facility] Address [address] [place] [address] Care Team Providers Name Role Phone Angel Hernandes Primary Care Physician Encounter Date(s): 11/27/16 - 11/27/16 [facility] [place] [address] [place], [place] [address] Discharge Disposition: Discharged to Home or Self Care Attending Physician: America Blanchard MD Admitting Physician: America Blanchard MD Referring Physician: Giorgio Santos MD Vital Signs No data available for this section Problem List Condition Effective Dates Status Health Status Informant Hypertension(Confirmed) Active 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) Allergies, Adverse Reactions, Alerts No Known Medication Allergies Medications Flomax 0.4 mg oral capsule 1 cap(s), Oral, HS, # 30 cap(s), 11 Refill(s), Start Date: 09/14/15 10:57:00 COMMUNITY LIFE DIRECTOR , Pharmacy: [facility], [place] Start Date: 09/14/15 Stop Date: 11/27/16 Status: Discontinuedlisinopril 10 mg oral tablet tab(s), Oral, Daily, 0 Refill(s), Start Date: 08/31/15 11:05:00 COMMUNITY LIFE DIRECTOR Start Date: 08/31/15 Status: Ordered Results No data available for this section Immunizations No data available for this section Procedures Procedure Date Related Diagnosis Body Site Tonsillectomy and adenoidectomy Social History No data available for this section Assessment and Plan No data available for this section
--- OUTSIDE RECORDS SUMMARY | 2017-04-28 21:10 | XMS REPORT | Summary of Care ---
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 Discharge Disposition: Discharged to Home or Self Care Attending Physician: America Blanchard MD Referring Physician: Angel Hernandes MD Vital Signs Most recent to oldest [Reference Range]: 1 Temperature Temporal Artery [36.0-38.0 DegC] 36.7 DegC (02/18/17 7:57 AM) Peripheral Pulse Rate [60-100 bpm] 70 bpm (02/18/17 7:57 AM) Respiratory Rate [12-20 br/min] 18 br/min (02/18/17 7:57 AM) SpO2 [90-100 %] 98 % (02/18/17 7:57 AM) Blood Pressure [90-130/60-90 mmHg] 149/75mmHg *HI* (02/18/17 7:57 AM) Mean Arterial Pressure, Cuff 100 mmHg (02/18/17 7:57 AM) Most recent to oldest [Reference Range]: 1 Height/Length Measured 178 cm (02/18/17 7:57 AM) Height/Length Estimated 178 cm (02/18/17 7:57 AM) Weight Estimated 75.7 kg (02/18/17 7:57 AM) Weight Dosing 75.7 kg (02/18/17 7:57 AM) Weight Measured 75.7 kg (02/18/17 7:57 AM) BSA Measured 1.93 m2 (02/18/17 7:57 AM) BSA Estimated 1.93 m2 (02/18/17 7:57 AM) Body Mass Index Measured 23.89 kg/m2 (02/18/17 7:57 AM) Body Mass Index Estimated 23.89 kg/m2 (02/18/17 7:57 AM) Problem List Condition Effective Dates Status [...] Refill(s), Start Date: 01/01/17 9:08:00 CDT, Pharmacy: [place], [place] Special Instructions: Please take day before [...] cap(s), 11 Refill(s), Start Date: 09/14/15 10:57:00 MAGNET VALVE ASSEMBLER , Pharmacy: [place], [place] Start Date: 09/14/15 Stop Date: 11/27/16 Status: Discontinuedfolic acid 1 mg oral tablet 1 tab(s), Oral, Daily, # 30 tab(s), 5 Refill(s), Start Date: 12/25/16 12:57:00 CDT, Pharmacy: [place], [place] Start Date: 12/25/16 Status: Orderedfolic acid [...] Daily, 0 Refill(s), Start Date: 08/31/15 11:05:00 MAGNET VALVE ASSEMBLER Start Date: 08/31/15 Status: OrderedNorco 5 mg-325 mg oral tablet 1 tab(s), Oral, q6hr, # 12 tab(s), 0 Refill(s), Start Date: 12/01/16 12:58:00 MAGNET VALVE ASSEMBLER, Pharmacy: [place], [place] Start Date: 12/01/16 Stop Date: 02/18/17 Status: Discontinuedondansetron 8 mg oral tablet 1 tab(s), Oral, q8hr, PRN nausea/vomiting, # 40 tab(s), 3 Refill(s), Start Date : 12/03/16 13:43:00 MAGNET VALVE ASSEMBLER, Pharmacy: [place], [place] Start Date: 12/03/16 Status: Orderedprochlorperazine 10 mg oral tablet 1 tab(s), Oral, q6hr, PRN nausea/vomiting, # 40 tab(s), 3 Refill(s), Start Date : 12/03/16 13:42:00 MAGNET VALVE ASSEMBLER, Pharmacy: [place], [place] Start Date: 12/03/16 Status: OrderedXanax 0.25 mg oral tablet 1 tab(s), Oral, TID, prn anxiety, 0 Refill(s), Start Date: 11/28/16 9:04:00 MAGNET VALVE ASSEMBLER Special Instructions: prn anxiety Start Date: [...] oldest [Reference Range]: 1 Estimated Creatinine Clearance 141.97 mL/min (02/18/17 7:59 AM) Immunizations Vaccine Date Refusal Reason influenza virus vaccine, inactivated 09/22/16 pneumococcal 13-valent conjugate vaccine 09/22/16 Procedures Procedure Date Related Diagnosis Body Site Insertion Implanted Port1 12/01/16 Lobectomy of lung2 Tonsillectomy and adenoidectomy 1auto-populated from documented surgical [id number] Social History No data available for this section Assessment and Plan No data available for this section
--- OUTSIDE RECORDS SUMMARY | 2017-04-28 21:10 | XMS REPORT | Summary of Care ---
:1965 Author Organization [facility] Care Team Providers Name Role Phone Hernandes Angel Primary Care Physician Encounter Date(s): 02/19/17 - 02/19/[address] [address] Discharge Disposition: Discharged to Home or Self Care Attending Physician: America Blanchard MD Admitting Physician: America Blanchard MD Vital Signs Most recent to oldest [Reference Range]: 1 2 Temperature Temporal Artery [36-38 DegC] 36.7 DegC (02/19/17 10:50 AM) Peripheral Pulse Rate [60-100 bpm] 58 bpm *LOW* (02/19/17 12:11 PM) Respiratory Rate [12-20 br/min] 20 br/min (02/19/17 10:50 AM) SpO2 [90-100 %] 98 % (02/19/17 10:50 AM) Blood Pressure [90-130/60-90 mmHg] 155/78mmHg 154/82mmHg *HI* *HI* (02/19/17 12:11 PM) (02/19/17 10:50 AM) Mean Arterial Pressure, Cuff 106 mmHg (02/19/17 10:50 AM) Problem List Condition Effective Dates Status [...] Refill(s), Start Date: 01/01/17 9:08:00 CDT, Pharmacy: [place], [place] Special Instructions: Please take day before [...] cap(s), 11 Refill(s), Start Date: 09/14/15 10:57:00 SECURITIES LENDING TRADER , Pharmacy: [facility], [place] Start Date: 09/14/15 Stop Date: 11/27/16 Status: Discontinuedfolic acid 1 mg oral tablet 1 tab(s), Oral, Daily, # 30 tab(s), 5 Refill(s), Start Date: 12/25/16 12:57:00 CDT, Pharmacy: [place], [place] Start Date: 12/25/16 Status: Orderedfolic acid [...] Daily, 0 Refill(s), Start Date: 08/31/15 11:05:00 SECURITIES LENDING TRADER Start Date: 08/31/15 Status: OrderedNorco 5 mg-325 mg oral tablet 1 tab(s), Oral, q6hr, # 12 tab(s), 0 Refill(s), Start Date: 12/01/16 12:58:00 SECURITIES LENDING TRADER, Pharmacy: [place], [place] Start Date: 12/01/16 Stop Date: 02/18/17 Status: Discontinuedondansetron 8 mg oral tablet 1 tab(s), Oral, q8hr, PRN nausea/vomiting, # 40 tab(s), 3 Refill(s), Start Date : 12/03/16 13:43:00 SECURITIES LENDING TRADER, Pharmacy: [place], [place] Start Date: 12/03/16 Status: Orderedprochlorperazine 10 mg oral tablet 1 tab(s), Oral, q6hr, PRN nausea/vomiting, # 40 tab(s), 3 Refill(s), Start Date : 12/03/16 13:42:00 SECURITIES LENDING TRADER, [place] Start Date: 12/03/16 Status: OrderedXanax 0.25 mg oral tablet 1 tab(s), Oral, TID, prn anxiety, 0 Refill(s), Start Date: 11/28/16 9:04:00 SECURITIES LENDING TRADER Special Instructions: prn anxiety Start Date: 11/28/16 [...] Tonsillectomy and adenoidectomy 1auto-populated from documented surgical [id number] Social History No data available for this section Assessment and Plan No data available for this section
--- OUTSIDE RECORDS SUMMARY | 2017-04-28 21:11 | XMS REPORT | Summary of Care ---
:1965 Author Organization [facility] Care Team Providers Name Role Phone Angel Hernandes Primary Care Physician Encounter Date(s): 03/11/17 - 03/11/[address] [address] Discharge Disposition: Discharged to Home or [...] Start Date: 01/01/17 9:08:00 CDT, Pharmacy: [place] Special Instructions: Please take day before [...] cap(s), 11 Refill(s), Start Date: 09/14/15 10:57:00 MEDICAL OPERATIONS SUPERVISOR , Pharmacy: [place], [place] Start Date: 09/14/15 Stop Date: 11/27/16 Status: Discontinuedfolic acid 1 mg oral tablet 1 tab(s), Oral, Daily, # 30 tab(s), 5 Refill(s), Start Date: 12/25/16 12:57:00 CDT, Pharmacy: [place], [place] Start Date: 12/25/16 Status: Orderedfolic acid [...] Daily, 0 Refill(s), Start Date: 08/31/15 11:05:00 MEDICAL OPERATIONS SUPERVISOR Start Date: 08/31/15 Status: OrderedNorco 5 mg-325 mg oral tablet 1 tab(s), Oral, q6hr, # 12 tab(s), 0 Refill(s), Start Date: 12/01/16 12:58:00 MEDICAL OPERATIONS SUPERVISOR, Pharmacy: [place], [place] Start Date: 12/01/16 Stop Date: 02/18/17 Status: Discontinuedondansetron 8 mg oral tablet 1 tab(s), Oral, q8hr, PRN nausea/vomiting, # 40 tab(s), 3 Refill(s), Start Date : 12/03/16 13:43:00 MEDICAL OPERATIONS SUPERVISOR, Pharmacy: [place] Start Date: 12/03/16 Status: Orderedprochlorperazine 10 mg oral tablet 1 tab(s), Oral, q6hr, PRN nausea/vomiting, # 40 tab(s), 3 Refill(s), Start Date : 12/03/16 13:42:00 MEDICAL OPERATIONS SUPERVISOR, Pharmacy: [place], [place] Start Date: 12/03/16 Status: OrderedXanax 0.25 mg oral tablet 1 tab(s), Oral, TID, prn anxiety, 0 Refill(s), Start Date: 11/28/16 9:04:00 MEDICAL OPERATIONS SUPERVISOR Special Instructions: prn anxiety Start Date: [...] oldest [Reference Range]: 1 WBC [4.8-10.8 thou/mm3] 4.6 thou/mm3 *LOW* (03/11/17 11:07 AM) RBC [4.60-6.00 Mil/mm3] 4.71 Mil/mm3 (03/11/17 11:07 AM) Hgb [14.0-18.0 g/dL] 13.2 g/dL *LOW* (03/11/17 11:07 AM) Hct [42.0-52.0 %] 39.9 % *LOW* (03/11/17 11:07 AM) MCV [80.0-94.0 fL] 84.7 fL (03/11/17 11:07 AM) MCH [25.0-38.0 pg/cell] 28.0 pg/cell (03/11/17 11:07 AM) MCHC [31.0-37.0 g/dL] 33.1 g/dL (03/11/17 11:07 AM) RDW [1.0-48.0 fL] 47.3 fL (03/11/17 11:07 AM) Platelet [130-400 thou/mm3] 216 thou/mm3 (03/11/17 11:07 AM) Neutrophils % Auto [50.0-75.0 %] 48.7 % *LOW* (03/11/17 11:07 AM) Immature Granulocyte Auto [0.1-2.0 %] 1.1 % (03/11/17 11:07 AM) Lymphocytes % Auto [15.0-41.0 %] 32.0 % (03/11/17 11:07 AM) Monocytes % Auto [2.0-10.0 %] 15.8 % *HI* (03/11/17 11:07 AM) Eosinophils % Auto [0.0-6.0 %] 2.2 % (03/11/17 11:07 AM) Basophil % Auto [0.0-1.0 %] 0.2 % (03/11/17: AM) Neutrophils Absolute [1.5-5.9 thou/mm3] 2.2 thou/mm3 (03/11/17 11:07 AM) Immature Gran Absolute [0.01-0.03 thou/mm3] 0.05 thou/mm3 *HI* (03/11/17 AM) Lymphocytes Absolute [1.5-4.0 thou/mm3] 1.5 thou/mm3 (03/11/17: AM) Monocytes Absolute [0.0-0.9 thou/mm3] 0.7 thou/mm3 (03/11/17: AM) Eosinophil Absolute [0.0-0.7 thou/mm3] 0.1 thou/mm3 (03/11/17: AM) Basophil Absolute [0.0-0.2 thou/mm3] 0.0 thou/mm3 (03/11/17:07 AM) Sodium Lvl [135-144 mEq/L] 140 mEq/L (03/11/17 AM) Potassium Lvl [3.3-4.8 mEq/L] 3.9 mEq/L (03/11/17 AM) Chloride Lvl [98-107 mEq/L] 100 mEq/L (03/11/17 AM) Bicarbonate Lvl [22-30 mmol/L] 29 mmol/L (03/11/17 AM) Anion Gap [10.0-20.0] 14.9 (03/11/17: AM) Glucose Lvl [70-108 mg/dL] 120 mg/dL *HI* (03/11/17: AM) BUN [7-21 mg/dL] 10 mg/dL (03/11/1707 AM) Creatinine Lvl [0.50-1.20 mg/dL] 0.64 mg/dL (03/11/17:07 AM) BUN/Creat Ratio 15.6 *NA* (03/11/17 AM) eGFR AA [>=60] >60 (03/11/17 11:07 AM) eGFR LUANN [>=60] >60 (03/11/17 11:07 AM) Calcium Lvl [8.6-10.2 mg/dL] 9.5 mg/dL (03/11/17 11:07 AM) Total Protein [6.4-8.3 g/dL] 7.3 g/dL (03/11/17 11:07 AM) Albumin Lvl [3.5-5.2 g/dL] 4.0 g/dL (03/11/17 11:07 AM) Globulin 3.3 *NA* (03/11/17 11:07 AM) A/G Ratio [0.9-1.8] 1.2 (03/11/17 11:07 AM) Bilirubin Total [0.1-1.0 mg/dL] 0.3 mg/dL (03/11/17 11:07 AM) Alkaline Phosphatase [39-129 unit/L] 162 unit/L *HI* (03/11/17 11:07 AM) AST [0-39 unit/L] 32 unit/L (03/11/17 11:07 AM) ALT [0-40 unit/L] 28 unit/L (03/11/17 11:07 AM) Magnesium Lvl [1.6-2.4 mg/dL] 1.8 mg/dL (03/11/17 11:07 AM) Estimated Creatinine Clearance 139.76 mL/min (03/11/17 11:35 AM) Immunizations Vaccine Date Refusal Reason influenza virus vaccine, inactivated 09/22/16 pneumococcal 13-valent conjugate vaccine 09/22/16 Procedures Procedure Date Related Diagnosis Body Site Insertion Implanted Port1 12/01/16 Lobectomy of lung2 Tonsillectomy and adenoidectomy 1auto-populated from documented surgical [id number] Social History No data available for this section Assessment and Plan No data available for this section
--- OUTSIDE RECORDS SUMMARY | 2017-04-28 21:11 | XMS REPORT | Summary of Care ---
:1965 Author Organization [facility] Address [address] [place] [id number] Care Team Providers Name Role Phone Cecilio Angel Primary Care Physician Encounter Date(s): 12/01/16 - 12/01/[address] [address] [facility] Discharge Disposition: 01 Discharged to Home or Self Care Attending Physician: Oliva Collins DO Admitting Physician: Oliva Collins DO Vital Signs Most recent to oldest 1 2 3 [Reference Range]: Temperature Temporal Artery 37.1 DegC 36.5 DegC [36-38 DegC] (12/01/16 1:33 PM) (12/01/16 12:58 PM) Temperature Temporal Artery 37.0 DegC [36.0-38.0 DegC] (12/01/16 10:19 AM) Heart Rate Monitored [60-100 83 bpm 87 bpm 92 bpm bpm] (12/01/16 2:27 PM) (12/01/16 1:54 PM) (12/01/16 1:33 PM) Respiratory Rate [12-20 16 br/min 16 br/min 18 br/min br/min] (12/01/16 2:27 PM) (12/01/16 1:54 PM) (12/01/16 1:33 PM) SpO2 [90-100 %] 99 % 99 % 98 % (12/01/16 2:27 PM) (12/01/16 1:54 PM) (12/01/16 1:33 PM) SpO2 Location Right hand Right hand Right hand (12/01/16 1:20 PM) (12/01/16 1:15 PM) (12/01/16 1:10 PM) Blood Pressure [90-130/60-90 125/78mmHg 133/87mmHg 116/79mmHg mmHg] (12/01/16 2:27 PM) *HI* (12/01/16 1:33 PM) (12/01/16 1:54 PM) Most recent to oldest [Reference Range]: 1 2 3 Height/Length Estimated 178 cm 178 cm (12/01/16 10:19 AM) (11/28/16 9:02 AM) Weight Estimated 76 kg (11/28/16 9:02 AM) Weight Dosing 74.1 kg (12/01/16 10:19 AM) Weight Measured 74.1 kg (12/01/16 10:19 AM) Problem List Condition Effective Dates Status Health Status Informant Hypertension(Confirmed) Active 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) Allergies, Adverse Reactions, Alerts Substance Reaction Severity Status fentaNYL Erythema Severe Active Medications Flomax 0.4 mg oral capsule 1 cap(s), Oral, HS, # 30 cap(s), 11 Refill(s), Start Date: 09/14/15 10:57:00 CONCRETE POINTER , Pharmacy: [place], [place] Start Date: 09/14/15 Stop Date: 11/27/16 Status: Discontinuedlisinopril 10 mg oral tablet 1 tab(s), Oral, Daily, 0 Refill(s), Start Date: 08/31/15 11:05:00 CONCRETE POINTER Start Date: 08/31/15 Status: OrderedNorco 5 mg-325 mg oral tablet 1 tab(s), Oral, q6hr, # 12 tab(s), 0 Refill(s), Start Date: 12/01/16 12:58:00 CONCRETE POINTER, Pharmacy: [place], [place] Start Date: 12/01/16 Status: OrderedXanax 0.25 mg oral tablet 1 tab(s), Oral, TID, prn anxiety, 0 Refill(s), Start Date: 11/28/16 9:04:00 CONCRETE POINTER Special Instructions: prn anxiety Start Date: 11/28/16 Status: Ordered Results Patient Viewable Results Most recent to oldest 1 2 3 [Reference Range]: AN - Fi O2 96 % % 95 % % 95 % % (12/01/16 12:50 PM) (12/01/16 12:45 PM) (12/01/16 12:40 PM) Immunizations No data available for this section Procedures Procedure Date Related Diagnosis Body Site Insertion Implanted Port1 12/01/16 Lobectomy of lung2 Tonsillectomy and adenoidectomy 1auto-populated from documented surgical [id number] Social History No data available for this section Assessment and Plan No data available for this section
--- OUTSIDE RECORDS SUMMARY | 2017-04-28 21:11 | XMS REPORT | Summary of Care ---
:1965 Author Organization [facility] Care Team Providers Name Role Phone Angel Hernandes Primary Care Physician Encounter Date(s): 01/30/17 - 01/30/[address] [address] Discharge Disposition: 01 Discharged to Home or Self Care Attending Physician: America Blanchard MD Admitting Physician: America Blanchard MD Vital Signs Most recent to oldest 1 2 3 [Reference Range]: Temperature Temporal Artery 36.8 DegC 36.6 DegC 37 DegC [36-38 DegC] (01/30/17 9:16 AM) (01/30/17 8:59 AM) (01/30/17 7:54 AM) Peripheral Pulse Rate [60-100 54 bpm 57 bpm 77 bpm bpm] *LOW* *LOW* (01/30/17 7:54 AM) (01/30/17 9:16 AM) (01/30/17 8:59 AM) Respiratory Rate [12-20 br/min] 18 br/min 20 br/min 20 br/min (01/30/17 9:16 AM) (01/30/17 8:59 AM) (01/30/17 7:54 AM) SpO2 [90-100 %] 100 % 100 % (01/30/17 9:16 AM) (01/30/17 7:54 AM) SpO2 Location Right hand Right hand (01/30/17 9:16 AM) (01/30/17 7:54 AM) Blood Pressure [90-130/60-90 176/85mmHg 177/95mmHg 177/92mmHg mmHg] *HI* *HI* *HI* (01/30/17 9:16 AM) (01/30/17 8:59 AM) (01/30/17 7:54 AM) Mean Arterial Pressure, Cuff 115 mmHg 122 mmHg 120 mmHg (01/30/17 9:16 AM) (01/30/17 8:59 AM) (01/30/17 7:54 AM) Blood Pressure Location Right arm Right arm Left arm (01/30/17 9:16 AM) (01/30/17 8:59 AM) (01/30/17 7:54 AM) Problem List Condition Effective Dates Status [...] Refill(s), Start Date: 01/01/17 9:08:00 CDT, Pharmacy: [place], [place] Special Instructions: Please take day before [...] cap(s), 11 Refill(s), Start Date: 09/14/15 10:57:00 MARBLE CEILING INSTALLER , Pharmacy: [place], [place] Start Date: 09/14/15 Stop Date: 11/27/16 Status: Discontinuedfolic acid 1 mg oral tablet 1 tab(s), Oral, Daily, # 30 tab(s), 5 Refill(s), Start Date: 12/25/16 12:57:00 CDT, Pharmacy: [place], [place] Start Date: 12/25/16 Status: Orderedfolic acid [...] Daily, 0 Refill(s), Start Date: 08/31/15 11:05:00 MARBLE CEILING INSTALLER Start Date: 08/31/15 Status: OrderedNorco 5 mg-325 mg oral tablet 1 tab(s), Oral, q6hr, # 12 tab(s), 0 Refill(s), Start Date: 12/01/16 12:58:00 MARBLE CEILING INSTALLER, Pharmacy: [place], [place] Start Date: 12/01/16 Status: Orderedondansetron 8 mg oral tablet 1 tab(s), Oral, q8hr, PRN nausea/vomiting, # 40 tab(s), 3 Refill(s), Start Date : 12/03/16 13:43:00 MARBLE CEILING INSTALLER, Pharmacy: [place], [place] Start Date: 12/03/16 Status: Orderedprochlorperazine 10 mg oral tablet 1 tab(s), Oral, q6hr, PRN nausea/vomiting, # 40 tab(s), 3 Refill(s), Start Date : 12/03/16 13:42:00 MARBLE CEILING INSTALLER, Pharmacy: [facility] [place] [place] Start Date: 12/03/16 Status: OrderedXanax 0.25 mg oral tablet 1 tab(s), Oral, TID, prn anxiety, 0 Refill(s), Start Date: 11/28/16 9:04:00 MARBLE CEILING INSTALLER Special Instructions: prn anxiety Start Date: 11/28/16 [...] Tonsillectomy and adenoidectomy 1auto-populated from documented surgical [id number] Social History No data available for this section Assessment and Plan No data available for this section
--- OUTSIDE RECORDS SUMMARY | 2017-04-28 21:11 | XMS REPORT | Summary of Care ---
:1965 Author Organization [facility] Address [address] [place] [id number]- Care Team Providers Name Role Phone Angel Hernandes Primary Care Physician Encounter Date(s): 01/01/17 - 01/01/[address] [address] Discharge Disposition: 01 Discharged to Home or Self Care Attending Physician: America Blanchard MD Admitting Physician: America Blanchard MD Vital Signs Most recent to oldest [Reference Range]: 1 Peripheral Pulse Rate [60-100 bpm] 85 bpm (01/01/17 4:22 PM) Blood Pressure [90-130/60-90 mmHg] 149/81mmHg *HI* (01/01/17 4:22 PM) Mean Arterial Pressure, Cuff 104 mmHg (01/01/17 4:22 PM) Problem List Condition Effective Dates Status [...] Refill(s), Start Date: 01/01/17 9:08:00 CDT, Pharmacy: [place], [place] Special Instructions: Please take day before [...] cap(s), 11 Refill(s), Start Date: 09/14/15 10:57:00 HEALTHCARE FACILITY ADMINISTRATOR , Pharmacy: [facility], [place] Start Date: 09/14/15 Stop Date: 11/27/16 Status: Discontinuedfolic acid 1 mg oral tablet 1 tab(s), Oral, Daily, # 30 tab(s), 5 Refill(s), Start Date: 12/25/16 12:57:00 CDT, Pharmacy: [facility], [place] Start Date: 12/25/16 Status: Orderedfolic acid 1 mg oral tablet 1 tab(s), Oral, Daily, # 30 tab(s), 0 Refill(s), Start Date: 01/01/17 9:10:00 CDT, other reason (Rx) Start Date: 01/01/17 Status: Orderedlisinopril 10 mg oral tablet 1 tab(s), Oral, Daily, 0 Refill(s), Start Date: 08/31/15 11:05:00 HEALTHCARE FACILITY ADMINISTRATOR Start Date: 08/31/15 Status: OrderedNorco 5 mg-325 mg oral tablet 1 tab(s), Oral, q6hr, # 12 tab(s), 0 Refill(s), Start Date: 12/01/16 12:58:00 HEALTHCARE FACILITY ADMINISTRATOR, Pharmacy: [facility], [place] Start Date: 12/01/16 Status: Orderedondansetron 8 mg oral tablet 1 tab(s), Oral, q8hr, PRN nausea/vomiting, # 40 tab(s), 3 Refill(s), Start Date : 12/03/16 13:43:00 HEALTHCARE FACILITY ADMINISTRATOR, Pharmacy: [facility], [place] Start Date: 12/03/16 Status: Orderedprochlorperazine 10 mg oral tablet 1 tab(s), Oral, q6hr, PRN nausea/vomiting, # 40 tab(s), 3 Refill(s), Start Date : 12/03/16 13:42:00 HEALTHCARE FACILITY ADMINISTRATOR, [place] Start Date: 12/03/16 Status: OrderedXanax 0.25 mg oral tablet 1 tab(s), Oral, TID, prn anxiety, 0 Refill(s), Start Date: 11/28/16 9:04:00 HEALTHCARE FACILITY ADMINISTRATOR Special Instructions: prn anxiety Start Date: 11/28/16 [...] oldest [Reference Range]: 1 WBC [4.8-10.8 thou/mm3] 7.0 thou/mm3 (01/01/17 8:30 AM) RBC [4.60-6.00 Mil/mm3] 4.69 Mil/mm3 (01/01/17 8:30 AM) Hgb [14.0-18.0 g/dL] 12.5 g/dL *LOW* (01/01/17 8:30 AM) Hct [42.0-52.0 %] 38.3 % *LOW* (01/01/17 8:30 AM) MCV [80.0-94.0 fL] 81.7 fL (01/01/17 8:30 AM) MCH [25.0-38.0 pg/cell] 26.7 pg/cell (01/01/17 8:30 AM) MCHC [31.0-37.0 g/dL] 32.6 g/dL (01/01/17 8:30 AM) RDW [1.0-48.0 fL] 38.8 fL (01/01/17 8:30 AM) Platelet [130-400 thou/mm3] 300 thou/mm3 (01/01/17 8:30 AM) Platelet Morphology [Normal] Abnormal *ABN* (01/01/17 8:30 AM) Clumped Platelets Few *ABN* (01/01/17 8:30 AM) Platelet Estimate [Normal] Normal1 (01/01/17 8:30 AM) Neutrophils (Manual) [50-75 %] 54 % (01/01/17 8:30 AM) Band (Manual) [0-10 %] 0 % (01/01/17 8:30 AM) Lymphocytes (Manual) [15-41 %] 29 % (01/01/17 8:30 AM) Monocytes (Manual) [0-10 %] 15 % *HI* (01/01/17 8:30 AM) Eosinophil (Manual) [0-6 %] 1 % (01/01/17 8:30 AM) Basophil (Manual) [0-1 %] 1 % (01/01/17 8:30 AM) WBC Morphology [Normal] Normal (01/01/17 8:30 AM) RBC Morphology [Normal] Normal (01/01/17 8:30 AM) Absolute Neutrophil Count [1.5-5.9 thou/mm3] 3.8 thou/mm3 (01/01/17 8:30 AM) Sodium Lvl [135-144 mEq/L] 140 mEq/L (01/01/17 8:30 AM) Potassium Lvl [3.3-4.8 mEq/L] 4.4 mEq/L (01/01/17 8:30 AM) Chloride Lvl [98-107 mEq/L] 102 mEq/L (01/01/17 8:30 AM) Bicarbonate Lvl [22-30 mmol/L] 30 mmol/L (01/01/17 8:30 AM) Anion Gap [10.0-20.0] 12.4 (01/01/17 8:30 AM) Glucose Lvl [70-108 mg/dL] 135 mg/dL *HI* (01/01/17 8:30 AM) BUN [7-21 mg/dL] 12 mg/dL (01/01/17 8:30 AM) Creatinine Lvl [0.50-1.20 mg/dL] 0.72 mg/dL (01/01/17 8:30 AM) BUN/Creat Ratio 16.7 *NA* (01/01/17 8:30 AM) eGFR AA [>=60] >60 (01/01/17 8:30 AM) eGFR LUANN [>=60] >60 (01/01/17 8:30 AM) Calcium Lvl [8.6-10.2 mg/dL] 9.5 mg/dL (01/01/17 8:30 AM) Total Protein [6.4-8.3 g/dL] 7.0 g/dL (01/01/17 8:30 AM) Albumin Lvl [3.5-5.2 g/dL] 3.8 g/dL (01/01/17 8:30 AM) Globulin 3.2 *NA* (01/01/17 8:30 AM) A/G Ratio [0.9-1.8] 1.2 (01/01/17 8:30 AM) Bilirubin Total [0.1-1.0 mg/dL] 0.3 mg/dL (01/01/17 8:30 AM) Alkaline Phosphatase [39-129 unit/L] 122 unit/L (01/01/17 8:30 AM) AST [0-39 unit/L] 23 unit/L (01/01/17 8:30 AM) ALT [0-40 unit/L] 23 unit/L (01/01/17 8:30 AM) Magnesium Lvl [1.6-2.4 mg/dL] 1.9 mg/dL (01/01/17 8:30 AM) Estimated Creatinine Clearance 124.23 mL/min (01/01/17 9:05 AM) 1Result Comment: Platelet clumps noted, platelet count may be higher than reported. Immunizations No data available for this section Procedures Procedure Date Related Diagnosis Body Site Insertion Implanted Port1 12/01/16 Lobectomy of lung2 Tonsillectomy and adenoidectomy 1auto-populated from documented surgical [id number] Social History No data available for this section Assessment and Plan No data available for this section
--- OUTSIDE RECORDS SUMMARY | 2017-04-28 21:11 | XMS REPORT | Summary of Care ---
:1965 Author Organization [facility] Address [address] [place] [address] Care Team Providers Name Role Phone Angel Hernandes Primary Care Physician Encounter Date(s): 12/03/16 - 12/03/16 [facility], [address] [place], [place] [address] Discharge Diagnosis: Adenocarcinoma of upper lobe of left lung Discharge Disposition: Discharged to Home or Self Care Attending Physician: HUI Rmoo Referring Physician: HUI Romo Vital Signs No data available for this section Problem List Condition Effective Dates Status Health Status Informant Hypertension(Confirmed) Active 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) Allergies, Adverse Reactions, Alerts Substance Reaction Severity Status fentaNYL Erythema Severe Active Medications Flomax 0.4 mg oral capsule 1 cap(s), Oral, HS, # 30 cap(s), 11 Refill(s), Start Date: 09/14/15 10:57:00 MOTION PICTURE PHOTOGRAPHER , Pharmacy: [place], [place] Start Date: 09/14/15 Stop Date: 11/27/16 Status: Discontinuedlisinopril 10 mg oral tablet 1 tab(s), Oral, Daily, 0 Refill(s), Start Date: 08/31/15 11:05:00 MOTION PICTURE PHOTOGRAPHER Start Date: 08/31/15 Status: OrderedNorco 5 mg-325 mg oral tablet 1 tab(s), Oral, q6hr, # 12 tab(s), 0 Refill(s), Start Date: 12/01/16 12:58:00 MOTION PICTURE PHOTOGRAPHER, Pharmacy: [place], [place] Start Date: 12/01/16 Status: Orderedondansetron 8 mg oral tablet 1 tab(s), Oral, q8hr, PRN nausea/vomiting, # 40 tab(s), 3 Refill(s), Start Date : 12/03/16 13:43:00 MOTION PICTURE PHOTOGRAPHER, Pharmacy: [place], [place] Start Date: 12/03/16 Status: Orderedprochlorperazine 10 mg oral tablet 1 tab(s), Oral, q6hr, PRN nausea/vomiting, # 40 tab(s), 3 Refill(s), Start Date : 12/03/16 13:42:00 MOTION PICTURE PHOTOGRAPHER, Pharmacy: [place], [place] Start Date: 12/03/16 Status: OrderedXanax 0.25 mg oral tablet 1 tab(s), Oral, TID, prn anxiety, 0 Refill(s), Start Date: 11/28/16 9:04:00 MOTION PICTURE PHOTOGRAPHER Special Instructions: prn anxiety Start Date: 11/28/16 Status: Ordered Results No data available for this section Immunizations No data available for this section Procedures Procedure Date Related Diagnosis Body Site Insertion Implanted Port1 12/01/16 Lobectomy of lung2 Tonsillectomy and adenoidectomy 1auto-populated from documented surgical [id number] Social History No data available for this section Assessment and Plan No data available for this section
--- OUTSIDE RECORDS SUMMARY | 2017-04-28 21:11 | XMS REPORT | Summary of Care ---
:1965 Author Organization [facility] Address [address] [facility] [address] [place] [address] Care Team Providers Name Role Phone Angel Hernandes Primary Care Physician Encounter Date(s): 01/28/17 - 01/28/17 [facility], [address] [place], [place] [address] Discharge Diagnosis: Adenocarcinoma of upper lobe of left lung Discharge Disposition: 01 Discharged to Home or Self Care Attending Physician: America Blanchard MD Referring Physician: Angel Hernandes MD Vital Signs Most recent to oldest [Reference Range]: 1 Temperature Temporal Artery [36.0-38.0 DegC] 36.9 DegC (01/28/17 8:03 AM) Peripheral Pulse Rate [60-100 bpm] 105 bpm *HI* (01/28/17 8:03 AM) Respiratory Rate [12-20 br/min] 18 br/min (01/28/17 8:03 AM) SpO2 [90-100 %] 99 % (01/28/17 8:03 AM) Blood Pressure [90-130/60-90 mmHg] 158/86mmHg *HI* (01/28/17 8:03 AM) Mean Arterial Pressure, Cuff 110 mmHg (01/28/17 8:03 AM) Most recent to oldest [Reference Range]: 1 Height/Length Measured 178 cm (01/28/17 8:03 AM) Height/Length Estimated 178 cm (01/28/17 8:03 AM) Weight Estimated 73.7 kg (01/28/17 8:03 AM) Weight Dosing 73.7 kg (01/28/17 8:03 AM) Weight Measured 73.7 kg (01/28/17 8:03 AM) BSA Measured 1.91 m2 (01/28/17 8:03 AM) BSA Estimated 1.91 m2 (01/28/17 8:03 AM) Body Mass Index Measured 23.26 kg/m2 (01/28/17 8:03 AM) Body Mass Index Estimated 23.26 kg/m2 (01/28/17 8:03 AM) Problem List Condition Effective Dates Status [...] Refill(s), Start Date: 01/01/17 9:08:00 CDT, Pharmacy: [place], [place] Special Instructions: Please take day before [...] cap(s), 11 Refill(s), Start Date: 09/14/15 10:57:00 CALL CENTER REPRESENTATIVE , Pharmacy: [place], [place] Start Date: 09/14/15 Stop Date: 11/27/16 Status: Discontinuedfolic acid 1 mg oral tablet 1 tab(s), Oral, Daily, # 30 tab(s), 5 Refill(s), Start Date: 12/25/16 12:57:00 CDT, Pharmacy: [place], [place] Start Date: 12/25/16 Status: Orderedfolic acid [...] Daily, 0 Refill(s), Start Date: 08/31/15 11:05:00 CALL CENTER REPRESENTATIVE Start Date: 08/31/15 Status: OrderedNorco 5 mg-325 mg oral tablet 1 tab(s), Oral, q6hr, # 12 tab(s), 0 Refill(s), Start Date: 12/01/16 12:58:00 CALL CENTER REPRESENTATIVE, Pharmacy: [place], [place] Start Date: 12/01/16 Status: Orderedondansetron 8 mg oral tablet 1 tab(s), Oral, q8hr, PRN nausea/vomiting, # 40 tab(s), 3 Refill(s), Start Date : 12/03/16 13:43:00 CALL CENTER REPRESENTATIVE, Pharmacy: [place], [place] Start Date: 12/03/16 Status: Orderedprochlorperazine 10 mg oral tablet 1 tab(s), Oral, q6hr, PRN nausea/vomiting, # 40 tab(s), 3 Refill(s), Start Date : 12/03/16 13:42:00 CALL CENTER REPRESENTATIVE, Pharmacy: [place] Start Date: 12/03/16 Status: OrderedXanax 0.25 mg oral tablet 1 tab(s), Oral, TID, prn anxiety, 0 Refill(s), Start Date: 11/28/16 9:04:00 CALL CENTER REPRESENTATIVE Special Instructions: prn anxiety Start Date: 11/28/16 [...] oldest [Reference Range]: 1 Estimated Creatinine Clearance 122.53 mL/min (01/28/17 8:06 AM) Immunizations Vaccine Date Refusal Reason influenza virus vaccine, inactivated 09/22/16 pneumococcal 13-valent conjugate vaccine 09/22/16 Procedures Procedure Date Related Diagnosis Body Site Insertion Implanted Port1 12/01/16 Lobectomy of lung2 Tonsillectomy and adenoidectomy 1auto-populated from documented surgical [id number] Social History No data available for this section Assessment and Plan No data available for this section
--- OUTSIDE RECORDS SUMMARY | 2017-04-28 21:11 | XMS REPORT | Summary of Care ---
:1965 Author Organization [facility] Care Team Providers Name Role Phone Angel Hernandes Primary Care Physician Encounter Date(s): 01/29/17 - 01/29/[address] [id number] Discharge Disposition: Discharged to Home or Self Care Attending Physician: America Blanchard MD Admitting Physician: America Blanchard MD Vital Signs Most recent to oldest [Reference Range]: 1 2 Temperature Temporal Artery [36-38 DegC] 36.5 DegC 36.6 DegC (01/29/17 10:38 AM) (01/29/17 9:28 AM) Peripheral Pulse Rate [60-100 bpm] 56 bpm 90 bpm *LOW* (01/29/17 9:28 AM) (01/29/17 10:38 AM) Respiratory Rate [12-20 br/min] 18 br/min 20 br/min (01/29/17 10:38 AM) (01/29/17 9:28 AM) SpO2 [90-100 %] 97 % (01/29/17 9:28 AM) SpO2 Location Left hand (01/29/17 9:28 AM) Blood Pressure [90-130/60-90 mmHg] 171/75mmHg 146/87mmHg *HI* *HI* (01/29/17 10:38 AM) (01/29/17 9:28 AM) Mean Arterial Pressure, Cuff 107 mmHg 107 mmHg (01/29/17 10:38 AM) (01/29/17 9:28 AM) Blood Pressure Location Left arm Left arm (01/29/17 10:38 AM) (01/29/17 9:28 AM) Problem List Condition Effective Dates Status [...] Refill(s), Start Date: 01/01/17 9:08:00 CDT, Pharmacy: [place], [place] Special Instructions: Please take day before [...] cap(s), 11 Refill(s), Start Date: 09/14/15 10:57:00 CLAIMS INVESTIGATOR , Pharmacy: [place], [place] Start Date: 09/14/15 Stop Date: 11/27/16 Status: Discontinuedfolic acid 1 mg oral tablet 1 tab(s), Oral, Daily, # 30 tab(s), 5 Refill(s), Start Date: 12/25/16 12:57:00 CDT, Pharmacy: [place], [place] Start Date: 12/25/16 Status: Orderedfolic acid [...] Daily, 0 Refill(s), Start Date: 08/31/15 11:05:00 CLAIMS INVESTIGATOR Start Date: 08/31/15 Status: OrderedNorco 5 mg-325 mg oral tablet 1 tab(s), Oral, q6hr, # 12 tab(s), 0 Refill(s), Start Date: 12/01/16 12:58:00 CLAIMS INVESTIGATOR, Pharmacy: [place], [place] Start Date: 12/01/16 Status: Orderedondansetron 8 mg oral tablet 1 tab(s), Oral, q8hr, PRN nausea/vomiting, # 40 tab(s), 3 Refill(s), Start Date : 12/03/16 13:43:00 CLAIMS INVESTIGATOR, Pharmacy: [place], [place] Start Date: 12/03/16 Status: Orderedprochlorperazine 10 mg oral tablet 1 tab(s), Oral, q6hr, PRN nausea/vomiting, # 40 tab(s), 3 Refill(s), Start Date : 12/03/16 13:42:00 CLAIMS INVESTIGATOR, Pharmacy: [place], [place] Start Date: 12/03/16 Status: OrderedXanax 0.25 mg oral tablet 1 tab(s), Oral, TID, prn anxiety, 0 Refill(s), Start Date: 11/28/16 9:04:00 CLAIMS INVESTIGATOR Special Instructions: prn anxiety Start Date: 11/28/16 [...] Tonsillectomy and adenoidectomy 1auto-populated from documented surgical [id number] Social History No data available for this section Assessment and Plan No data available for this section
--- OUTSIDE RECORDS SUMMARY | 2017-04-28 21:11 | XMS REPORT | Summary of Care ---
:1965 Author Organization [facility] Care Team Providers Name Role Phone Angel Hernandes Primary Care Physician Encounter Date(s): 02/04/17 - 02/04/[address] [id number] Discharge Disposition: Discharged to Home or Self [...] Refill(s), Start Date: 01/01/17 9:08:00 CDT, Pharmacy: [facility] [place], [place] Special Instructions: Please take day before [...] cap(s), 11 Refill(s), Start Date: 09/14/15 10:57:00 PERSONAL FINANCIAL REPRESENTATIVE , Pharmacy: [place], [place] Start Date: 09/14/15 Stop Date: 11/27/16 Status: Discontinuedfolic acid 1 mg oral tablet 1 tab(s), Oral, Daily, # 30 tab(s), 5 Refill(s), Start Date: 12/25/16 12:57:00 CDT, Pharmacy: [place], [place] Start Date: 12/25/16 Status: Orderedfolic acid [...] Daily, 0 Refill(s), Start Date: 08/31/15 11:05:00 PERSONAL FINANCIAL REPRESENTATIVE Start Date: 08/31/15 Status: OrderedNorco 5 mg-325 mg oral tablet 1 tab(s), Oral, q6hr, # 12 tab(s), 0 Refill(s), Start Date: 12/01/16 12:58:00 PERSONAL FINANCIAL REPRESENTATIVE, Pharmacy: [place], [place] Start Date: 12/01/16 Status: Orderedondansetron 8 mg oral tablet 1 tab(s), Oral, q8hr, PRN nausea/vomiting, # 40 tab(s), 3 Refill(s), Start Date : 12/03/16 13:43:00 PERSONAL FINANCIAL REPRESENTATIVE, Pharmacy: [place], [place] Start Date: 12/03/16 Status: Orderedprochlorperazine 10 mg oral tablet 1 tab(s), Oral, q6hr, PRN nausea/vomiting, # 40 tab(s), 3 Refill(s), Start Date : 12/03/16 13:42:00 PERSONAL FINANCIAL REPRESENTATIVE, Pharmacy: [place], [place] Start Date: 12/03/16 Status: OrderedXanax 0.25 mg oral tablet 1 tab(s), Oral, TID, prn anxiety, 0 Refill(s), Start Date: 11/28/16 9:04:00 PERSONAL FINANCIAL REPRESENTATIVE Special Instructions: prn anxiety Start Date: [...] oldest [Reference Range]: 1 WBC [4.8-10.8 thou/mm3] 8.0 thou/mm3 (02/04/17 8:16 AM) RBC [4.60-6.00 Mil/mm3] 5.43 Mil/mm3 (02/04/17 8:16 AM) Hgb [14.0-18.0 g/dL] 14.9 g/dL (02/04/17 8:16 AM) Hct [42.0-52.0 %] 44.7 % (02/04/17 8:16 AM) MCV [80.0-94.0 fL] 82.3 fL (02/04/17 8:16 AM) MCH [25.0-38.0 pg/cell] 27.4 pg/cell (02/04/17 8:16 AM) MCHC [31.0-37.0 g/dL] 33.3 g/dL (02/04/17 8:16 AM) RDW [1.0-48.0 fL] 46.4 fL (02/04/17 8:16 AM) Platelet [130-400 thou/mm3] 89 thou/mm31 *LOW* (02/04/17 8:16 AM) Neutrophils % Auto [50.0-75.0 %] 68.8 % (02/04/17 8:16 AM) Immature Granulocyte Auto [0.1-2.0 %] 0.4 % (02/04/17 8:16 AM) Lymphocytes % Auto [15.0-41.0 %] 23.4 % (02/04/17 8:16 AM) Monocytes % Auto [2.0-10.0 %] 6.6 % (02/04/17 8:16 AM) Eosinophils % Auto [0.0-6.0 %] 0.8 % (02/04/17 8:16 AM) Basophil % Auto [0.0-1.0 %] 0.0 % (02/04/17 8:16 AM) Neutrophils Absolute [1.5-5.9 thou/mm3] 5.5 thou/mm3 (02/04/17 8:16 AM) Immature Gran Absolute [0.01-0.03 thou/mm3] 0.03 thou/mm3 (02/04/17 8:16 AM) Lymphocytes Absolute [1.5-4.0 thou/mm3] 1.9 thou/mm3 (02/04/17 8:16 AM) Monocytes Absolute [0.0-0.9 thou/mm3] 0.5 thou/mm3 (02/04/17 8:16 AM) Eosinophil Absolute [0.0-0.7 thou/mm3] 0.1 thou/mm3 (02/04/17 8:16 AM) Basophil Absolute [0.0-0.2 thou/mm3] 0.0 thou/mm3 (02/04/17 8:16 AM) 1Result Comment: Platelet count reviewed by smear. Immunizations Vaccine Date Refusal Reason influenza virus vaccine, inactivated 09/22/16 pneumococcal 13-valent conjugate vaccine 09/22/16 Procedures Procedure Date Related Diagnosis Body Site Insertion Implanted Port1 12/01/16 Lobectomy of lung2 Tonsillectomy and adenoidectomy 1auto-populated from documented surgical [id number] Social History No data available for this section Assessment and Plan No data available for this section
--- OUTSIDE RECORDS SUMMARY | 2017-04-28 21:12 | XMS REPORT | Summary of Care ---
:1965 Author Organization [facility] Address [address] [place] [id number]- Care Team Providers Name Role Phone Angel Hernandes Primary Care Physician Encounter Date(s): 12/25/16 - 12/25/[address] [address] [facility] Discharge Disposition: 01 Discharged to Home or Self Care Attending Physician: America Blanchard MD Admitting Physician: America Blanchard MD Vital Signs Most recent to oldest [Reference Range]: 1 Temperature Temporal Artery [36-38 DegC] 36.9 DegC (12/25/16 8:24 AM) Peripheral Pulse Rate [60-100 bpm] 94 bpm (12/25/16 8:24 AM) Respiratory Rate [12-20 br/min] 20 br/min (12/25/16 8:24 AM) SpO2 [90-100 %] 98 % (12/25/16 8:24 AM) Blood Pressure [90-130/60-90 mmHg] 145/70mmHg *HI* (12/25/16 8:24 AM) Mean Arterial Pressure, Cuff 95 mmHg (12/25/16 8:24 AM) Problem List Condition Effective Dates Status Health Status Informant 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) Hypertension(Confirmed) Active 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) Allergies, Adverse Reactions, Alerts Substance Reaction Severity Status fentaNYL Erythema Severe Active Medications Flomax 0.4 mg oral capsule 1 cap(s), Oral, HS, # 30 cap(s), 11 Refill(s), Start Date: 09/14/15 10:57:00 DIRECTOR COMMERCIAL SALES , Pharmacy: [facility] [place], [place] Start Date: 09/14/15 Stop Date: 2/16/17 Status: Discontinuedfolic acid 1 mg oral tablet 1 tab(s), Oral, Daily, # 30 tab(s), 5 Refill(s), Start Date: 12/25/16 12:57:00 CDT, Pharmacy: [place], [place] Start Date: 12/25/16 Status: Orderedlisinopril 10 mg oral tablet 1 tab(s), Oral, Daily, 0 Refill(s), Start Date: 08/31/15 11:05:00 DIRECTOR COMMERCIAL SALES Start Date: 08/31/15 Status: OrderedNorco 5 mg-325 mg oral tablet 1 tab(s), Oral, q6hr, # 12 tab(s), 0 Refill(s), Start Date: 12/01/16 12:58:00 DIRECTOR COMMERCIAL SALES, Pharmacy: [place], [place] Start Date: 12/01/16 Status: Orderedondansetron 8 mg oral tablet 1 tab(s), Oral, q8hr, PRN nausea/vomiting, # 40 tab(s), 3 Refill(s), Start Date : 12/03/16 13:43:00 DIRECTOR COMMERCIAL SALES, Pharmacy: [place], [place] Start Date: 12/03/16 Status: Orderedprochlorperazine 10 mg oral tablet 1 tab(s), Oral, q6hr, PRN nausea/vomiting, # 40 tab(s), 3 Refill(s), Start Date : 12/03/16 13:42:00 DIRECTOR COMMERCIAL SALES, Pharmacy: [place], [place] Start Date: 12/03/16 Status: OrderedXanax 0.25 mg oral tablet 1 tab(s), Oral, TID, prn anxiety, 0 Refill(s), Start Date: 11/28/16 9:04:00 DIRECTOR COMMERCIAL SALES Special Instructions: prn anxiety Start Date: 11/28/16 [...] oldest [Reference Range]: 1 WBC [4.8-10.8 thou/mm3] 2.6 thou/mm3 *LOW* (12/25/16 8:09 AM) RBC [4.60-6.00 Mil/mm3] 4.15 Mil/mm3 *LOW* (12/25/16 8:09 AM) Hgb [14.0-18.0 g/dL] 11.2 g/dL *LOW* (12/25/16 8:09 AM) Hct [42.0-52.0 %] 33.7 % *LOW* (12/25/16 8:09 AM) MCV [80.0-94.0 fL] 81.2 fL (12/25/16 8:09 AM) MCH [25.0-38.0 pg/cell] 27.0 pg/cell (12/25/16 8:09 AM) MCHC [31.0-37.0 g/dL] 33.2 g/dL (12/25/16 8:09 AM) RDW [1.0-48.0 fL] 36.2 fL (12/25/16 8:09 AM) Platelet [130-400 thou/mm3] 265 thou/mm3 (12/25/16 8:09 AM) Platelet Morphology [Normal] Normal (12/25/16 8:09 AM) Platelet Estimate [Normal] Normal (12/25/16 8:09 AM) Neutrophils (Manual) [50-75 %] 17 % *LOW* (12/25/16 8:09 AM) Band (Manual) [0-10 %] 8 % (12/25/16 8:09 AM) Lymphocytes (Manual) [15-41 %] 51 % *HI* (12/25/16 8:09 AM) Atypical Lymphocyte [0-7 %] 4 % (12/25/16 8:09 AM) Monocytes (Manual) [0-10 %] 17 % *HI* (12/25/16 8:09 AM) Eosinophil (Manual) [0-6 %] 2 % (12/25/16 8:09 AM) Basophil (Manual) [0-1 %] 1 % (12/25/16 8:09 AM) WBC Morphology [Normal] Normal (12/25/16 8:09 AM) RBC Morphology [Normal] Abnormal *ABN* (12/25/16 8:09 AM) Polychromasia 1+ *ABN* (12/25/16 8:09 AM) Absolute Neutrophil Count [1.5-5.9 thou/mm3] 0.6 thou/mm31 *CRIT* (12/25/16 8:09 AM) 1Result Comment: Verified Results called to and read back by Padma Harris at 12/25 9:02:44 AM CDT by claire. Immunizations No data available for this section Procedures Procedure Date Related Diagnosis Body Site Insertion Implanted Port1 12/01/16 Lobectomy of lung2 Tonsillectomy and adenoidectomy 1auto-populated from documented surgical [id number] Social History No data available for this section Assessment and Plan No data available for this section
[2017-04-28 21:15] LABS: Hematocrit 47.3 % (42.0-52.0); Hemoglobin 16.1 gm/dL (13.5-18.0); Mean Cell Volume 83.1 fl (78-100); Mean Corpuscular Hemoglobin 28.3 pg (27-31); Mean Platelet Volume 9.7 fl (6.0-9.5); Neutrophil # 10.8 K/mm3 (1.3-6.0); Neutrophil % 83.8 % (42-75.0); Platelet Count 205 K/mm3 (150-450); Red Blood Count 5.69 M/mm3 (4.7-6.0); Red Cell Distribution Width 12.6 % (11.5-14.0); White Blood Count 12.9 K/mm3 (4.0-10.5)
[2017-04-28 21:31] LABS: Albumin * 4.2 gm/dl (3.4-5.0); Anion Gap 13.8 mmol/L (6.8-13.8); BUN/Creatinine Ratio 12.7 (9.0-21.6); Ca. Corrected For Albumin 9.4 mg/dL (8.4-10.2); Calcium * 9.9 mg/dL (7.9-10.9); Carbon Dioxide 27.5 mmol/L (24-32.6); Potassium 4.3 mmol/L (3.4-4.6); Total Protein 9.2 gm/dL (6.2-8.2)
[2017-04-28 22:07] VITALS: BP 172/89
== END 2017-04-28 23:54 | disposition home or self-care (01) ==
LOC: ER 20:20
DX: R11.2 Nausea with vomiting, unspecified (principal); R51 Headache; Z87.891 Personal history of nicotine dependence; Z92.21 Personal history of antineoplastic chemotherapy; Z85.118 Personal history of other malignant neoplasm of bronchus and lung
CPT/HCPCS: 36415; 70450; 74020; 80053; 82150; 83690; 85025; 96374; 99283; J2405